=== PATIENT | male | born 1935 | race Caucasian/White ===

== ENCOUNTER → 2016-04-23 | Outpatient (CLI) | payer MEDICARE, MEDICAID ==
[2016-04-23 12:12] LABS: Urine RBC None Seen /hpf (0 - 3)
[2016-04-23 12:23] LABS: Basophils # (auto) 0 uL; Basophils % (auto) 0.6 % (0.0-2.0); Eosinophils # (auto) 0.1 uL; Eosinophils % (auto) 1.5 % (0.0-7.0); Hematocrit 37.9 % (41.0-53.0); Lymphocytes # (auto) 1.6 uL; Mean Corpuscular Hemoglobin 30.5 pg (28.0-32.0); Mean Corpuscular Hgb Conc. 34.2 g/dL (32.0-36.0); Mean Corpuscular Volume 89.3 fL (80.0-100.0); Mean Platelet Volume 8.6 fL (7.4-10.4); Monocytes # (auto) 0.2 uL; Neutrophils # (auto) 2.8 uL; Neutrophils % (auto) 59.9 % (37.0-80.0); Platelet Count (auto) 194 10^3/uL (140-450); Red Cell Distribution Width 13.9 % (11.6-16.0); White Blood Cell 4.6 10^3/uL (4.4-10.8)
[2016-04-23 13:07] LABS: Urine Bilirubin Negative (Negative); Urine Blood Negative /uL (Negative); Urine Color Yellow (Yellow); Urine Glucose Normal (Normal); Urine Ketone Negative (Negative); Urine Nitrite Negative (Negative); Urine Squamous Epithelial Cell FEW /hpf (<5); Urine Urobilinogen Normal (Negative); Urine pH 7.5 (5.0-8.0)
[2016-04-23 13:24] LABS: Albumin 3.6 g/dL (3.4-5.0); BUN/Creatinine Ratio 12.5; Bilirubin, Total 0.6 mg/dL (0.2-1.0); Calcium 8.4 mg/dL (8.5-10.1); Potassium 4.4 mmol/L (3.5-5.1); Total Protein 7.4 g/dL (6.4-8.2)
== END | disposition home or self-care (01) ==
LOC: LAB 11:55
PROVIDERS: ATTEND Internal Medicine
DX: Z00.00 Encounter for general adult medical examination without abnormal findings (principal); E78.2 Mixed hyperlipidemia; E11.9 Type 2 diabetes mellitus without complications; E55.9 Vitamin D deficiency, unspecified; I10 Essential (primary) hypertension
CPT/HCPCS: 36415; 80053; 80061; 81001; 82306; 83036; 84153; 84154; 84443; 85025

== ENCOUNTER → 2016-07-28 | Outpatient (CLI) | payer MEDICARE, MEDICAID | END | disposition home or self-care (01) | LOC: LAB 09:18 | PROVIDERS: ATTEND Internal Medicine | DX: Z00.00 Encounter for general adult medical examination without abnormal findings (principal); E03.9 Hypothyroidism, unspecified | CPT/HCPCS: 36415; 84153; 84154; 84439; 84443; 84481 ==

== ENCOUNTER → 2016-08-11 | Outpatient (CLI) | payer MEDICARE, MEDICAID ==
[2016-08-11 12:19] LABS: BUN/Creatinine Ratio 17.1; Calcium 8.9 mg/dL (8.5-10.1); Potassium 4.4 mmol/L (3.5-5.1)
[2016-08-12 08:06] LABS: Prostate Specific Antigen 6.1 ng/mL (0.0-4.0)
[2016-08-12 13:07] LABS: PSA Free 2.23 ng/mL
== END | disposition home or self-care (01) ==
LOC: LAB 11:40
PROVIDERS: ATTEND Internal Medicine
DX: I10 Essential (primary) hypertension (principal); R97.20 Elevated prostate specific antigen [PSA]
CPT/HCPCS: 36415; 80048; 82270; 84153; 84154

== ENCOUNTER → 2016-09-02 | Outpatient (CLI) | payer MEDICARE, MEDICAID | END | disposition home or self-care (01) | LOC: XYW 08:59 | PROVIDERS: ATTEND Internal Medicine | DX: I10 Essential (primary) hypertension (principal) | CPT/HCPCS: 93306 ==

== ENCOUNTER → 2017-04-14 | Outpatient (CLI) | payer MEDICARE, MEDICAID ==
[2017-04-14 10:49] LABS: Basophils # (auto) 0.1 uL; Eosinophils # (auto) 0.2 uL; Eosinophils % (auto) 3.1 % (0.0-7.0); Hematocrit 36.3 % (41.0-53.0); Hemoglobin 12.5 g/dL (13.5-17.5); Lymphocytes # (auto) 2.1 uL; Lymphocytes % (auto) 34.1 % (10.0-50.0); Mean Corpuscular Hgb Conc. 34.5 g/dL (32.0-36.0); Mean Corpuscular Volume 92.7 fL (80.0-100.0); Monocytes # (auto) 0.2 uL; Monocytes % (auto) 3.8 % (0.0-12.0); Neutrophils # (auto) 3.6 uL; Platelet Count (auto) 198 10^3/uL (140-450); Red Blood Cells 3.91 10^6/uL (4.5-5.90); Red Cell Distribution Width 13.3 % (11.8-14.3); White Blood Cell 6.2 10^3/uL (4.4-10.8)
[2017-04-14 11:25] LABS: Albumin 3.8 g/dL (3.4-5.0); BUN/Creatinine Ratio 17.2; Bilirubin, Total 0.7 mg/dL (0.2-1.0); Calcium 9.2 mg/dL (8.5-10.1); Potassium 4.5 mmol/L (3.5-5.1); Total Protein 7.7 g/dL (6.4-8.2)
== END | disposition home or self-care (01) ==
LOC: LAB 09:53
PROVIDERS: ATTEND Physician Assistant
DX: I10 Essential (primary) hypertension (principal); E55.9 Vitamin D deficiency, unspecified; D64.9 Anemia, unspecified; R01.1 Cardiac murmur, unspecified; R97.20 Elevated prostate specific antigen [PSA]
CPT/HCPCS: 36415; 80053; 80061; 84153; 84154; 85025

== ENCOUNTER → 2017-09-21 | Outpatient (CLI) | payer MEDICARE, MEDICAID | END | disposition home or self-care (01) | LOC: LAB 10:00 | PROVIDERS: ATTEND Physician Assistant | DX: L83 Acanthosis nigricans (principal) ==

== ENCOUNTER → 2018-07-25 | Outpatient (CLI) | payer MEDICARE, MEDICAID ==
[2018-07-25 12:17] LABS: Basophils # (auto) 0.2 uL; Basophils % (auto) 2.5 % (0.0-2.0); Eosinophils # (auto) 0.1 uL; Eosinophils % (auto) 1.7 % (0.0-7.0); Hematocrit 37.2 % (41.0-53.0); Hemoglobin 12.9 g/dL (13.5-17.5); Lymphocytes # (auto) 1.9 uL; Lymphocytes % (auto) 29.8 % (10.0-50.0); Mean Corpuscular Hemoglobin 31.8 pg (28.0-32.0); Mean Corpuscular Hgb Conc. 34.7 g/dL (32.0-36.0); Mean Corpuscular Volume 91.8 fL (80.0-100.0); Monocytes # (auto) 0.3 uL; Monocytes % (auto) 4.2 % (0.0-12.0); Neutrophils # (auto) 3.9 uL; Neutrophils % (auto) 61.8 % (37.0-80.0); Nucleated Red Blood Cells % 0.2 %; Platelet Count (auto) 229 10^3/uL (140-450); Red Blood Cells 4.05 10^6/uL (4.5-5.90); White Blood Cell 6.2 10^3/uL (4.4-10.8)
[2018-07-25 13:24] LABS: Potassium 4.5 mmol/L (3.5-5.1)
[2018-07-25 13:43] LABS: Albumin 3.9 g/dL (3.4-5.0); BUN/Creatinine Ratio 17.2; Bilirubin, Total 0.5 mg/dL (0.2-1.0); Calcium 9.2 mg/dL (8.5-10.1); Total Protein 7.6 g/dL (6.4-8.2)
== END | disposition home or self-care (01) ==
LOC: LAB 11:57
PROVIDERS: ATTEND Physician Assistant
DX: N40.0 Benign prostatic hyperplasia without lower urinary tract symptoms (principal); I10 Essential (primary) hypertension; R97.20 Elevated prostate specific antigen [PSA]; R01.1 Cardiac murmur, unspecified; E55.9 Vitamin D deficiency, unspecified; R94.30 Abnormal result of cardiovascular function study, unspecified
CPT/HCPCS: 36415; 80053; 80061; 84153; 84154; 85025

== ENCOUNTER 2019-08-26 12:02 | Inpatient (IN) | payer MEDICARE, MEDICAID ==
[~2019-08-26] VITALS: Ht 180.3 cm; Wt 95.6 kg
[2019-08-26] MEDS ORDERED: ONDANSETRON HCL 4 MG/2 ML VIAL IV ONE (12:45)
[2019-08-26 13:55] LABS: Basophils # (auto) 0.1 10 ^3/uL (0-0.2); Basophils % (auto) 0.6 % (0.0-2.0); Eosinophils # (auto) 0 10 ^3/uL (0-0.8); Hematocrit 38.1 % (41.0-53.0); Hemoglobin 12.6 g/dL (13.5-17.5); Lymphocytes % (auto) 11.3 % (10.0-50.0); Mean Corpuscular Hemoglobin 30.5 pg (28.0-32.0); Mean Corpuscular Hgb Conc. 33.2 g/dL (32.0-36.0); Mean Corpuscular Volume 91.9 fL (80.0-100.0); Monocytes # (auto) 0.3 10 ^3/uL (0-1.3); Monocytes % (auto) 3.7 % (0.0-12.0); Neutrophils # (auto) 7.8 10 ^3/uL (1.6-8.6); Neutrophils % (auto) 84.4 % (37.0-80.0); Platelet Count (auto) 254 10^3/uL (140-450); Red Blood Cells 4.14 10^6/uL (4.5-5.90); Red Cell Distribution Width 13.6 % (11.8-14.3); White Blood Cell 9.2 10^3/uL (4.4-10.8)
[2019-08-26 14:13] LABS: Anion Gap 8 (5-15); Blood Urea Nitrogen 31 mg/dL (7-18); Calcium 10.7 mg/dL (8.5-10.1); Carbon Dioxide 24 mmol/L (21-32); Chloride 108 mmol/L (98-107); Glucose 134 mg/dL (74-106); Sodium 140 mmol/L (136-145)
[2019-08-26] MEDS ORDERED: MORPHINE SULF INJ 2 MG/ML SYRINGE 1ML IV ONE (14:15)
[2019-08-26 14:19] LABS: Alanine Aminotransferase 18 U/L (16-61); Alkaline Phosphatase 79 U/L (45-117); Aspartate Aminotransferase 14 U/L (15-37); BUN/Creatinine Ratio 16.2; Bilirubin, Total 0.5 mg/dL (0.2-1.0); GFR African American 43 mL/min; GFR Non-African American 36 mL/min; Total Protein 8.6 g/dL (6.4-8.2)
[2019-08-26 14:24] LABS: Magnesium 2.4 mg/dL (1.6-2.6)
[2019-08-26] MEDS ORDERED: LACTATED RINGER'S 1,000 ML IV ONE (15:00)
[2019-08-26] MEDS ORDERED: NITROGLYCERIN 0.4 MG SL TAB SL PRN (15:00)
[2019-08-26] MEDS ORDERED: LACTULOSE 20Gm/30ML SOLN PO PRN (15:00)
[2019-08-26] MEDS ORDERED: ALUM & MAG HYDROX-SIMETH LIQ(MAALOX) 30 ML PO PRN (15:00)
[2019-08-26] MEDS ORDERED: MORPHINE SULF INJ 2 MG/ML SYRINGE 1ML IV PRN (15:00)
[2019-08-26] MEDS ORDERED: LORazepam 0.5 MG TAB PO PRN (15:00)
[2019-08-26] MEDS ORDERED: HYDROcodone-ACET 5/325MG TAB PO PRN (15:00)
[2019-08-26] MEDS ORDERED: DOCUSATE SOD 100 MG CAP PO PRN (15:00)
[2019-08-26] MEDS ORDERED: cloNIDine HCL 0.1 MG TAB PO PRN (16:00)
[2019-08-26 19:20] LABS: INR 1.07 (0.9-1.15); Partial Thromboplastin Time 23.9 sec (23.64-32.05)
[2019-08-26] MEDS: SODIUM CHLORIDE 0.9% 1,000 ML IV SCH (21:16)
[2019-08-26] MEDS: metroNIDAZOLE 500MG/100ML 100 ML IV SCH (21:16)
[2019-08-26] MEDS: METOPROLOL TARTRATE 25 MG TAB PO SCH (21:18)
[2019-08-26 21:30] VITALS: BP_SYST 155; BP_SYST 156; BP_DIAS 74; BP_DIAS 88
--- NOTE | 2019-08-26 21:35 | NUR ---
Patient arrived on unit Patient to room 202, A&Ox4, respirations even and non-labored with no s/s of distress. VS: T 98.6, BP 155/74. HR 96, 94%, RR 18, 0/10 pain. Oriented patient to room, call light, bathroom, bed controls, and placed urinal bedside. Advised patient to call for assistance, bed alarm on. Bed in lowest locked position with 2 side rails up. Call light within reach. Will continue to monitor.
[2019-08-26 22:05] VITALS: BP 150/69
[2019-08-27 05:00] VITALS: BP 145/72
[2019-08-27 06:55] LABS: Basophils # (auto) 0 10 ^3/uL (0-0.2); Basophils % (auto) 0.6 % (0.0-2.0); Eosinophils # (auto) 0 10 ^3/uL (0-0.8); Eosinophils % (auto) 0.1 % (0.0-7.0); Hematocrit 33.4 % (41.0-53.0); Hemoglobin 11.4 g/dL (13.5-17.5); Lymphocytes # (auto) 1.3 10 ^3/uL (0.4-5.4); Lymphocytes % (auto) 18.3 % (10.0-50.0); Mean Corpuscular Hemoglobin 31.1 pg (28.0-32.0); Mean Corpuscular Volume 91.6 fL (80.0-100.0); Monocytes # (auto) 0.5 10 ^3/uL (0-1.3); Monocytes % (auto) 6.9 % (0.0-12.0); Neutrophils # (auto) 5.2 10 ^3/uL (1.6-8.6); Neutrophils % (auto) 74.1 % (37.0-80.0); Platelet Count (auto) 207 10^3/uL (140-450); Red Blood Cells 3.65 10^6/uL (4.5-5.90); Red Cell Distribution Width 13.5 % (11.8-14.3)
[2019-08-27] MEDS: metroNIDAZOLE 500MG/100ML 100 ML IV SCH ×3 (07:00→21:00)
[2019-08-27 07:15] LABS: Potassium 4.1 mmol/L (3.5-5.1)
[2019-08-27 07:21] LABS: INR 1.03 (0.9-1.15); Partial Thromboplastin Time 26.3 sec (23.64-32.05)
[2019-08-27 07:34] LABS: Albumin 3.3 g/dL (3.4-5.0); Bilirubin, Total 0.5 mg/dL (0.2-1.0); Calcium 9.1 mg/dL (8.5-10.1); Magnesium 2.2 mg/dL (1.6-2.6); Phosphorus 3.6 mg/dL (2.5-4.90); Total Protein 7.1 g/dL (6.4-8.2)
--- NOTE | 2019-08-27 07:38 | NUR ---
Closing shift note Patient awake, sitting up watching TV without s/s of distress or SOB. Endorsed care to day RNYudelka.
[2019-08-27] MEDS: SODIUM CHLORIDE 0.9% 1,000 ML IV SCH (08:09)
[2019-08-27 09:00] VITALS: BP 140/74
[2019-08-27] MEDS: cefTRIAXone 1GM/50ML D5W 50 ML IV SCH (09:11)
[2019-08-27] MEDS: ENOXAPARIN SOD 40 MG/0.4 ML SYRINGE SC SCH (10:00)
[2019-08-27] MEDS: METOPROLOL TARTRATE 25 MG TAB PO SCH ×2 (10:00→21:01)
[2019-08-27] MEDS ORDERED: THROAT LOZENGES(CEPASTAT) MT PRN (12:45)
[2019-08-27 13:00] VITALS: BP 140/69
--- NOTE | 2019-08-27 16:29 | NUR ---
Consents - Colonoscopy/PICC Colonoscopy consents signed. Surgical checklist done. PICC order signed. PICC consent not signed by doctor as he believed signing the consent meant he did the procedure. He said it was for the PICC line nurse to sign. Explained that signing the consent meant that he had explained the procedure/risks/etc to the patient, not that he did the procedure. He disagreed. Will pass along to shift production supervisor that this consent still needs to be signed by the doctor.
[2019-08-27 16:54] LABS: Urine Bacteria NONE SEEN /hpf (None Seen); Urine Blood Negative /uL (Negative); Urine Mucus FEW (None Seen); Urine Specific Gravity 1.021 (1.001-1.035); Urine WBC 2 /hpf (0 - 3)
[2019-08-27 17:00] VITALS: BP 135/48
[2019-08-27 17:01] LABS: Amphetamine Screen, Urine NEGATIVE (NEGATIVE); Barbiturate Scree,Urine NEGATIVE (NEGATIVE); Benzodiazephine Screen, Urine NEGATIVE (NEGATIVE); Cannabinoid Screen, Urine NEGATIVE (NEGATIVE); Cocaine Screen, Urine NEGATIVE (NEGATIVE); Opiate Scree,Urine NEGATIVE (NEGATIVE); Phencyclidine Screen, Urine NEGATIVE (NEGATIVE)
--- NOTE | 2019-08-27 19:15 | NUR ---
Opening shift note Assumed care of patient who is A&Ox4, respirations even and non-labored with no s/s of distress. Discussed POC with patient who verbalized understanding. NGT at low intermittent suction, 30 mL of light brown gastric fluid in canister. Bed in lowest locked position with 2 side rails up, call light within reach. Will continue to monitor.
[2019-08-27] MEDS: ONDANSETRON HCL 4 MG/2 ML VIAL IV PRN (21:00)
[2019-08-27] MEDS: MORPHINE SULF INJ 2 MG/ML SYRINGE 1ML IV PRN (21:01)
--- NOTE | 2019-08-27 21:05 | NUR ---
IV removal IV DC'd with clean sterile technique, catheter fully intact. Pressure dressing applied to site. Patient tolerated well.
--- NOTE | 2019-08-27 21:10 | NUR ---
Pain Patient c/o 7/10 pain to the throat and abdomen. Administered 2 mg Morphine and 4 mg Zofran per EMAR. Will continue to monitor.
--- NOTE | 2019-08-27 21:15 | NUR ---
IV insertion IV access obtained, via clean sterile technique by inserting 20 gauge catheter at the right FA after 1 attempt. IV secured properly. No trauma to site. Patient tolerated well.
--- NOTE | 2019-08-27 21:20 | NUR ---
Pain Reassessed Patient stated that his pain level is about a 2/10 now and that he feels much better. Will continue to monitor.
[2019-08-28 00:08] VITALS: BP 119/73
[2019-08-28] MEDS: SODIUM CHLORIDE 0.9% 1,000 ML IV SCH ×2 (00:17→17:42)
[2019-08-28 05:34] LABS: Basophils # (auto) 0 10 ^3/uL (0-0.2); Basophils % (auto) 0.7 % (0.0-2.0); Eosinophils # (auto) 0 10 ^3/uL (0-0.8); Eosinophils % (auto) 0.3 % (0.0-7.0); Hematocrit 31.9 % (41.0-53.0); Hemoglobin 10.8 g/dL (13.5-17.5); Lymphocytes # (auto) 1.3 10 ^3/uL (0.4-5.4); Mean Corpuscular Hemoglobin 31.1 pg (28.0-32.0); Mean Corpuscular Hgb Conc. 33.9 g/dL (32.0-36.0); Mean Corpuscular Volume 91.9 fL (80.0-100.0); Monocytes # (auto) 0.6 10 ^3/uL (0-1.3); Neutrophils # (auto) 5.1 10 ^3/uL (1.6-8.6); Platelet Count (auto) 177 10^3/uL (140-450); Red Blood Cells 3.47 10^6/uL (4.5-5.90); Red Cell Distribution Width 13.8 % (11.8-14.3)
[2019-08-28 05:41] VITALS: BP 131/68
[2019-08-28 05:50] LABS: INR 1.07 (0.9-1.15)
[2019-08-28 05:59] LABS: Potassium 4.3 mmol/L (3.5-5.1)
[2019-08-28 06:04] LABS: Calcium 8.3 mg/dL (8.5-10.1)
--- NOTE | 2019-08-28 07:30 | NUR ---
Closing shift note Patient resting without SOB or s/s of distress. Endorsed care to day RN Summer.
--- NOTE | 2019-08-28 07:40 | NUR ---
Opening Note Received report from shift production associate RN. Patient is awake, alert and oriented x4. Patient is on room air, respirations even and unlabored. Patient has NG tube to right nares, set to low intermittent suction. Patient denies pain at this time. Reviewed plan of care with patient, patient verbalized understanding. Patient is NPO for scheduled procedure. Bed in low and locked position, call light within reach. Will continue to monitor Q1 hour and PRN.
--- NOTE | 2019-08-28 08:05 | NUR ---
Patient refused stress test Patient states "I don't need that, my heart is fine." Patient educated on importance of test, continues to refuse. Tech at bedside. Will continue to monitor Q1 hour and PRN.
--- NOTE | 2019-08-28 08:10 | NUR ---
Enema administered Per MD orders. Call light within reach. Will continue to monitor.
[2019-08-28] MEDS ORDERED: ADENOSINE 82 MG in GIVE UN-DILUTED 0 ML IV STA (08:33)
[2019-08-28 09:00] VITALS: BP 127/65
[2019-08-28] MEDS: cefTRIAXone 1GM/50ML D5W 50 ML IV SCH (09:19)
[2019-08-28] MEDS: ENOXAPARIN SOD 40 MG/0.4 ML SYRINGE SC SCH (10:00)
[2019-08-28] MEDS: METOPROLOL TARTRATE 25 MG TAB PO SCH ×2 (10:00→22:40)
--- NOTE | 2019-08-28 11:35 | NUR ---
Patient removed NG Tube This RN found patient NG tube on the floor. Patient states "I sneezed and it came out." Site assessed, no trauma noted. Will continue to monitor Q1 hour and PRN.
--- NOTE | 2019-08-28 11:40 | NUR ---
Patient taken down to OR
[2019-08-28] MEDS ORDERED: diphenhdrAMINE HCL 50 MG/1 ML VL ONE (12:30)
[2019-08-28] MEDS ORDERED: SODIUM CHLORIDE LOCK 10 ML ONE (12:30)
[2019-08-28 13:00] VITALS: BP 127/49
[2019-08-28] MEDS: MIDAZOLAM HCL 5 MG/ML-1ML VIAL ONE ×4 (15:02→15:15)
[2019-08-28] MEDS: fentaNYL CITRATE 100 MCG/2 ML VL ONE ×3 (15:02→15:11)
--- NOTE | 2019-08-28 16:01 | NUR ---
Patient back to room Patient is s/p colonoscopy. Patient is awake and alert. Patient is having periods of confusion. Patient denies pain at this time. Vital signs within normal limits. Patient is to remain NPO. Bed alarm on for safety. Bed in low and locked position, call light within reach. Patient instructed to call for assistance. Will continue to monitor Q1 hour and PRN.
[2019-08-28 17:00] VITALS: BP 144/64
[2019-08-28] MEDS: metroNIDAZOLE 500MG/100ML 100 ML IV SCH ×3 (17:41→22:39)
--- NOTE | 2019-08-28 19:06 | NUR ---
Closing Note Report given to material handler 1st shift RN. No signs or symptoms of distress noted at this time.
--- NOTE | 2019-08-28 19:15 | NUR ---
Opening shift note Assumed care of patient who is A&Ox4, respirations even and non-labored with no s/s of distress. Discussed POC with patient who verbalized understanding. Advised patient to call for assistance, bed alarm on. Bed in lowest locked position with 2 side rails up. Call light within reach, will continue to monitor
[2019-08-28 22:00] VITALS: BP 134/69
[2019-08-28] MEDS: MORPHINE SULF INJ 2 MG/ML SYRINGE 1ML IV PRN (22:40)
--- NOTE | 2019-08-28 22:40 | NUR ---
Pain reassessed Patient sleeping, respirations even and non-labored with no s/s of distress. Will continue to monitor.
--- NOTE | 2019-08-28 22:40 | NUR ---
Pain Patient c/o 8/10 abdominal/body pain. Administered 2 mg Morphine per EMAR, will continue to monitor.
[2019-08-29] VITALS (7 sets, daily range): BP systolic 121–145; BP diastolic 68–86
[2019-08-29 05:19] LABS: Basophils # (auto) 0.1 10 ^3/uL (0-0.2); Eosinophils # (auto) 0.1 10 ^3/uL (0-0.8); Eosinophils % (auto) 1.5 % (0.0-7.0); Hematocrit 30.2 % (41.0-53.0); Hemoglobin 10.4 g/dL (13.5-17.5); Lymphocytes # (auto) 1.5 10 ^3/uL (0.4-5.4); Lymphocytes % (auto) 25.3 % (10.0-50.0); Mean Corpuscular Hemoglobin 31.5 pg (28.0-32.0); Mean Corpuscular Hgb Conc. 34.3 g/dL (32.0-36.0); Mean Corpuscular Volume 91.8 fL (80.0-100.0); Monocytes # (auto) 0.4 10 ^3/uL (0-1.3); Monocytes % (auto) 6.8 % (0.0-12.0); Neutrophils # (auto) 3.8 10 ^3/uL (1.6-8.6); Neutrophils % (auto) 65.4 % (37.0-80.0); Platelet Count (auto) 149 10^3/uL (140-450); Red Blood Cells 3.29 10^6/uL (4.5-5.90); Red Cell Distribution Width 13.8 % (11.8-14.3); White Blood Cell 5.8 10^3/uL (4.4-10.8)
[2019-08-29 05:50] LABS: Calcium 7.9 mg/dL (8.5-10.1); Potassium 4.1 mmol/L (3.5-5.1)
[2019-08-29] MEDS: metroNIDAZOLE 500MG/100ML 100 ML IV SCH ×3 (06:35→21:41)
--- NOTE | 2019-08-29 07:36 | NUR ---
Closing shift note Patient resting with no s/s of distress or SOB. Endorsed care to day RNCeline.
--- NOTE | 2019-08-29 08:00 | NUR ---
Opening Shift Note Assumed care of patient, awake, alert and oriented X4. No S/S of distress/SOB or pain. Tele# 28, sinus rhythm @ 74 bpm. IV to right forearm, 20 gauge, patent and infusing 0.9% NS @ 60 ml/hr. Patient remains NPO. Instructed on POC and to call for assist PRN, verbalized understanding. Bed locked, in lowest position, call light within reach, will continue to monitor for changes Q1hr and PRN.
[2019-08-29] MEDS: cefTRIAXone 1GM/50ML D5W 50 ML IV SCH (09:55)
[2019-08-29] MEDS: METOPROLOL TARTRATE 25 MG TAB PO SCH ×2 (09:56→21:41)
[2019-08-29] MEDS: ENOXAPARIN SOD 40 MG/0.4 ML SYRINGE SC SCH ×2 (09:56→10:00)
--- NOTE | 2019-08-29 11:00 | NUR ---
Est energy needs 2931-9212 kcal (14-18 kcal/kg BW 100.7kg) Est protein 60-76g (0.6-0.75g/kg BW 100.7kg r/t elevated RFTs, inc protein if RFT improve) WIll reassess prn. Addendum: 08/29/19 at [address] Amended: Links added.
[2019-08-29] MEDS ORDERED: ADENOSINE 85 MG in GIVE UN-DILUTED 0 ML IV STA (11:37)
[2019-08-29] MEDS: LIDOCAINE VISCOUS 2% 15ML UD PO SCH ×3 (12:00→21:41)
[2019-08-29] MEDS: SODIUM CHLORIDE 0.9% 1,000 ML IV SCH (14:34)
--- NOTE | 2019-08-29 19:20 | NUR ---
Care endorsed to BRAD Graff, night nurse.
--- NOTE | 2019-08-29 20:00 | NUR ---
Opening Shift Note Assumed care of patient, awake and alert. No S/S of distress/SOB or pain. Instructed on POC and to call for assist PRN, will continue to monitor for changes Q1hr and PRN.
[2019-08-30] MEDS: SODIUM CHLORIDE 0.9% 1,000 ML IV SCH ×2 (02:17→18:57)
[2019-08-30 05:00] VITALS: BP 160/79
[2019-08-30 05:48] LABS: Basophils # (auto) 0.1 10 ^3/uL (0-0.2); Basophils % (auto) 1.4 % (0.0-2.0); Eosinophils # (auto) 0.1 10 ^3/uL (0-0.8); Eosinophils % (auto) 2.6 % (0.0-7.0); Hematocrit 29.8 % (41.0-53.0); Hemoglobin 10.1 g/dL (13.5-17.5); Lymphocytes # (auto) 1.2 10 ^3/uL (0.4-5.4); Lymphocytes % (auto) 24.8 % (10.0-50.0); Mean Corpuscular Hemoglobin 31.5 pg (28.0-32.0); Mean Corpuscular Volume 92.7 fL (80.0-100.0); Monocytes # (auto) 0.3 10 ^3/uL (0-1.3); Monocytes % (auto) 6.6 % (0.0-12.0); Neutrophils # (auto) 3.1 10 ^3/uL (1.6-8.6); Neutrophils % (auto) 64.6 % (37.0-80.0); Nucleated Red Blood Cells % 0.1 %; Platelet Count (auto) 158 10^3/uL (140-450); Red Blood Cells 3.22 10^6/uL (4.5-5.90); Red Cell Distribution Width 13.6 % (11.8-14.3); White Blood Cell 4.8 10^3/uL (4.4-10.8)
[2019-08-30] MEDS: LIDOCAINE VISCOUS 2% 15ML UD PO SCH ×4 (06:00→22:00)
[2019-08-30 06:06] LABS: Potassium 3.9 mmol/L (3.5-5.1)
[2019-08-30 06:08] LABS: BUN/Creatinine Ratio 17.5
[2019-08-30] MEDS: metroNIDAZOLE 500MG/100ML 100 ML IV SCH ×3 (06:17→21:32)
[2019-08-30 06:21] VITALS: BP 154/90
--- NOTE | 2019-08-30 06:46 | NUR ---
IV removal IV DC'd with clean sterile technique, catheter fully intact. Pressure dressing applied to site. Patient tolerated well. IV insertion IV access obtained, via clean sterile technique by inserting 22 gauge catheter at RIGHT FOREARM after 1 attempt(s). IV secured properly. No trauma to site. Patient tolerated well.
--- NOTE | 2019-08-30 07:15 | NUR ---
OPENING NOTE Assumed care of patient at 0700. Lung sounds clear, equal bilaterally and unlabored. Patient verbalized that he is not feeling any pain at this time. Assisted patient with ADLs. Updated patient on POC. Bed locked in lowest position, HOB elevated at least 30 degrees, side rails up x 2 and call light is within reach. Will continue to monitor.
[2019-08-30 08:17] VITALS: BP 149/87
[2019-08-30] MEDS: METOPROLOL TARTRATE 25 MG TAB PO SCH ×2 (09:23→21:29)
[2019-08-30] MEDS: cefTRIAXone 1GM/50ML D5W 50 ML IV SCH (09:23)
[2019-08-30] MEDS: ENOXAPARIN SOD 40 MG/0.4 ML SYRINGE SC SCH (09:24)
--- NOTE | 2019-08-30 10:30 | NUR ---
GI Dr Matthews at bedside for GI follow up. No new orders received at this time. Plan of care discussed with patient, verbalized understanding.
--- NOTE | 2019-08-30 11:30 | NUR ---
SURGICAL Dr Hernandez at bedside for rounds, new orders received and followed through. Patient updated on plan of care, verbalized understanding.
[2019-08-30 11:57] VITALS: BP 149/77
--- NOTE | 2019-08-30 12:30 | NUR ---
ROUNDS Dr Siddhartha Josue at bedside for rounds, new orders received and followed through. Patient updated on plan of care, verbalized understanding.
--- NOTE | 2019-08-30 12:50 | NUR ---
CARDIOLOGY Dr Decker at bedside for Cardiology follow up. No new orders received at this time. Plan of care discussed with patient, verbalized understanding.
[2019-08-30 16:41] VITALS: BP 145/78
--- NOTE | 2019-08-30 17:32 | NUR ---
assessment Patient is a 83 year old male who is alert and oriented. Patients cognitive abilities are intact. Prior to admission patient lived home alone and functioned independently. Patient informed me he is able to care for his own ADLs. Per patient he will return home to his prior living arrangements post discharge and will have transport home. Patient is scheduled for a hemicolectomy in the morning. Patient does not want to go to SNF on discharge. I informed patient we would discharge plan after surgery to see if he can go home with home health. Patient agreed. I will continue to monitor and follow up as appropriate. I informed patient he has a right to speak to a social services director regarding all care. I informed patient he has a right to participate in any and all discharge planning. Patient has a POA and advanced directive. I have offered patient information on POA and advanced directives. I informed the patient the advantages and benefits of having an Advanced Directive. Patient verbalized understanding and agreed to discharge plan. Addendum: 08/30/19 at 1739 by Humaira PICKERING Amended: Links added.
--- NOTE | 2019-08-30 19:12 | NUR ---
Care endorsed to BRAD Graff, night nurse.
[2019-08-30 23:12] VITALS: BP 150/85
[2019-08-31 05:00] VITALS: BP 129/73
[2019-08-31] MEDS: LIDOCAINE VISCOUS 2% 15ML UD PO SCH ×4 (05:48→22:00)
[2019-08-31] MEDS: metroNIDAZOLE 500MG/100ML 100 ML IV SCH ×3 (05:52→22:03)
[2019-08-31 06:32] LABS: INR 1.12 (0.9-1.15)
[2019-08-31] MEDS ORDERED: DOXAPRAM HCL 20 MG/ML 20ML VIAL INJ IV ONE (07:06)
[2019-08-31] MEDS ORDERED: LIDOCAINE 1% HCL (LOCAL ANESTH.) INJ 20ML MDV ONE (07:06)
[2019-08-31] MEDS ORDERED: SUCCINYLCHOLINE CHLORIDE 20 MG/ML 10ML VIAL IV ONE (07:06)
[2019-08-31] MEDS ORDERED: fentaNYL CITRATE 100 MCG/2 ML VL ONE (07:12)
[2019-08-31] MEDS ORDERED: ROCURONIUM 10MG/ML 10ML VIAL IV ONE (07:12)
[2019-08-31] MEDS ORDERED: fentaNYL CITRATE 5 ML ONE (07:12)
[2019-08-31] MEDS ORDERED: MORPHINE SULFATE INJECTION 1 ML ONE (07:13)
[2019-08-31] MEDS ORDERED: SODIUM CHLORIDE LOCK 10 ML ONE (07:13)
[2019-08-31] MEDS ORDERED: MIDAZOLAM HCL 1MG/1ML-2 ML VIAL ONE (07:13)
[2019-08-31] MEDS ORDERED: ETOMIDATE (2MG/ML) 20ML VIAL IV ONE (07:13)
[2019-08-31] MEDS ORDERED: PROPOFOL 10 MG/ML 20 ML IV ONE (07:13)
[2019-08-31] MEDS ORDERED: ONDANSETRON HCL 4 MG/2 ML VIAL ONE (07:13)
--- NOTE | 2019-08-31 07:30 | NUR ---
Report received. Patient is off unit at this time.
[2019-08-31] MEDS ORDERED: ceFAZolin 1GM/50ML 50 ML IV ONE (07:32)
--- NOTE | 2019-08-31 08:56 | NUR ---
Received call from PACU. Procedure was not able to be done due to patient experiencing A-fib/A-flutter. Patient to return to room and Dr. Decker to be consulted.
--- NOTE | 2019-08-31 09:15 | NUR ---
Dr. Siddhartha Josue informed the surgery was not done due to dysrhythmias.
[2019-08-31 09:30] VITALS: BP 122/67
[2019-08-31] MEDS: METOPROLOL TARTRATE 25 MG TAB PO SCH ×2 (10:00→22:00)
[2019-08-31] MEDS: cefTRIAXone 1GM/50ML D5W 50 ML IV SCH (10:16)
--- NOTE | 2019-08-31 10:54 | NUR ---
Nutrition Floowup Notes Pt wt is 100.0 kg Pt was sleeping with no relatives at bedside when rounded this morning. Pt is currently NPO d/t scheduled medical procedure. Pt with no distress per RD doc. Will continue to monitor PO status, skin status, pertinent labs and weight trends. Will f/u in 2-3 days. Est energy needs 1390-5927 kcal (14-18 kcal/kg BW 100.7kg) Est protein 60-76g (0.6-0.75g/kg BW 100.7kg r/t elevated RFTs, inc protein if RFT improve) Will reassess prn. LABS: POT 116 H, BUN 25 H, CR 1.43 H, GFR 50 L, CA 8.0 L, ALB 3.3 L GI: Pt had 4 BM on 08/27 per RN doc. BS: 18 mod risk Refer to wound assessment report for full details. PES: 1) Obesity r/t caloric intake in excess of needs aeb pt BMI is 31.0kg/m2 which is obese 2) Altered nutrition related labs r/t current medical condition aeb elevated RFTs, hypoalb 3) Inadequate oral intake r/t current medical condition aeb pt with NPO diet order Comments 1) continue monitor po status, labs, skin 2) refer pt to [facility] on dc 3) continue current plan of care
[2019-08-31] MEDS: SODIUM CHLORIDE 0.9% 1,000 ML IV SCH (11:37)
[2019-08-31 13:00] VITALS: BP 137/74
[2019-08-31] MEDS ORDERED: LIDOCAINE 1% (LOCAL ANESTH.) PF 5ml SDV ID ONE (15:00)
--- NOTE | 2019-08-31 15:00 | NUR ---
PICC line placement Patient educated on need for PICC line placement. All risks and benefits explained and all questions and concerns addressed prior to procedure. Pt agrees to PICC line placement. Noted past medical history and allergies with no contraindications. INR and Plt counts within acceptable range. 5 fr PICC line inserted via right brachial vein using [employer]'s [employer] US and Tip Location System. Sterile technique with maximum barrier precautions utilized. Blood return obtained from each of the 2 lumens and each flushed easily with NS using proper technique. PICC secured with Stat-lock; biodisc and occlusive dressing applied. Stat portable chest x-ray obtained for PICC tip placement. *Baseline Arm Circumference 30 cm. Internal length 51 cm. External length 0. PICC lot #[id number]
--- NOTE | 2019-08-31 15:05 | NUR ---
Okay to use PICC line Xray completed and reviewed. Okay to use PICC line. Sherri SALINAS notified.
[2019-08-31 17:00] VITALS: BP 134/78
--- NOTE | 2019-08-31 18:25 | NUR ---
Patient has no complaints at this time. Call light in reach. Will continue to monitor.
[2019-08-31 22:00] VITALS: BP 135/75
[2019-08-31] MEDS: SODIUM CHLOR 0.9% PF (SALINE LOCK) 10ML VIAL/SYR IV SCH (22:03)
[2019-09-01] VITALS (18 sets, daily range): BP systolic 111–170; BP diastolic 31–97
[2019-09-01] MEDS: MORPHINE SULF INJ 2 MG/ML SYRINGE 1ML IV PRN ×2 (02:56→10:11)
[2019-09-01] MEDS: SODIUM CHLORIDE 0.9% 1,000 ML IV SCH ×2 (04:45→21:29)
[2019-09-01] MEDS: METOPROLOL TARTRATE 1MG/1ML-5ML VIAL IV PRN (05:13)
[2019-09-01] MEDS: LIDOCAINE VISCOUS 2% 15ML UD PO SCH ×4 (05:43→21:38)
[2019-09-01] MEDS: metroNIDAZOLE 500MG/100ML 100 ML IV SCH ×3 (05:43→21:30)
--- NOTE | 2019-09-01 07:30 | NUR ---
Opening shift note Assumed care of patient from NOC BRAD mo. Patient is AOX4 no s/s of distress noted. Bed in lowest locked position, side rails up x2 and call light is within reach. Updated patient on plan of care and patient verbalized understanding. Will continue to monitor q1hr and PRN.
--- NOTE | 2019-09-01 07:37 | NUR ---
Closing note Endorsed care to day shift RN.
--- NOTE | 2019-09-01 08:30 | NUR ---
Physician rounding. Dr. Josue at bedside, updated MD on patient status. New orders received, will follow thorough and will continue care.
--- NOTE | 2019-09-01 08:30 | NUR ---
Physician rounding Dr. Josue at bedside, updated MD on patient status. New orders received, will follow through and will continue care.
--- NOTE | 2019-09-01 09:42 | NUR ---
Received call from Received call from Dr. Hernandez, per MD he would like Dr. Corado to reassess the patient. Will place call to ground crewman Mickie.
--- NOTE | 2019-09-01 09:50 | NUR ---
Paged continuum of care manager Placed page for Dr. Corado regarding surgery. Abating call back.
[2019-09-01] MEDS: cefTRIAXone 1GM/50ML D5W 50 ML IV SCH (10:11)
[2019-09-01] MEDS: SODIUM CHLOR 0.9% PF (SALINE LOCK) 10ML VIAL/SYR IV SCH ×2 (10:11→21:38)
[2019-09-01] MEDS: METOPROLOL TARTRATE 25 MG TAB PO SCH ×2 (10:12→21:38)
--- NOTE | 2019-09-01 10:15 | NUR ---
Received call back from Received call back from Dr. Corado. Per MD patient is clear for surgery, stated if Dr. Hernandez has any further questions to contact him or consult another milk tanker driver. Will update Dr. Hernandez, will continue care.
--- NOTE | 2019-09-01 10:21 | NUR ---
Returned call to MD Called Dr. Hernandez Regarding update from Dr. Decker. No new orders received at this time, will continue care.
--- NOTE | 2019-09-01 12:30 | NUR ---
CORE BLOWER OPERATORBRAD Corral at bedside. BRAD Corral Provided update regarding patients status. Per anesthesiologist patient will be monitored in pre-op.
--- NOTE | 2019-09-01 12:38 | NUR ---
Patient off unit Patient taken down by OR nurse Shayna. No s/s of distress noted at this time.
[2019-09-01] MEDS ORDERED: METOPROLOL TARTRATE 1MG/1ML-5ML VIAL IV ONE ×3 (12:59→15:15)
[2019-09-01] MEDS ORDERED: fentaNYL CITRATE 100 MCG/2 ML VL ONE (13:46)
[2019-09-01] MEDS ORDERED: MIDAZOLAM HCL 1MG/1ML-2 ML VIAL ONE ×2 (13:46→15:56)
[2019-09-01] MEDS ORDERED: HYDROmorphone HCL 2 MG/ML VL ONE ×2 (13:46→15:56)
[2019-09-01] MEDS ORDERED: fentaNYL CITRATE 10 ML ONE (13:47)
[2019-09-01] MEDS ORDERED: ETOMIDATE (2MG/ML) 20ML VIAL IV ONE (14:09)
[2019-09-01] MEDS ORDERED: ROCURONIUM 10MG/ML 10ML VIAL IV ONE ×2 (14:10→15:56)
[2019-09-01] MEDS ORDERED: ESMOLOL HCL 10 ML IV ONE (15:15)
[2019-09-01] MEDS ORDERED: POVIDONE IODINE 10 % TOPICAL OINT 30GM TOP ONE (15:48)
[2019-09-01] MEDS: MIDAZOLAM DRIP 50 mg/50mL 50 ML IV SCH (15:59)
[2019-09-01] MEDS: fentaNYL Drip 2500mCg/250mlNS 250 ML IV SCH (15:59)
[2019-09-01] MEDS ORDERED: MIDAZOLAM DRIP 50 mg/50mL 50 ML IV ONE (16:07)
[2019-09-01] MEDS ORDERED: HYDROmorphone HCL 2 MG/ML VL IV PRN ×2 (16:45)
[2019-09-01] MEDS ORDERED: MIDAZOLAM HCL 1MG/1ML-2 ML VIAL IV PRN (16:45)
[2019-09-01] MEDS ORDERED: ONDANSETRON HCL 4 MG/2 ML VIAL IV PRN (16:45)
[2019-09-01] MEDS ORDERED: MORPHINE SULFATE 4 MG/ML SYR/VIAL IV PRN (16:45)
[2019-09-01] MEDS ORDERED: TPN PER PHARMACY 0 ML IV SCH (17:45)
[2019-09-01] MEDS ORDERED: AMINO ACID INFUSION IN D5W 2,000 ML IV NR (20:00)
--- NOTE | 2019-09-01 20:30 | NUR ---
RECEIVED PATIENT FROM PACU: INTUBATED AND SEDATED. DEEPLY SEDATED, GROSSLY UNRESPONSIVE. AFIB 100-130s. A LINE PRESSURES 160-180s. NIBP SIMILAR. PER PACU, ANESTHESIOLOGIST AWARE, AND NEAR PATIENT'S BASELINE SO NO INTERVENTION WAS DONE. 8.0 ETT, 23 AT THE LIP. LS CTA, DIMINISHED TO BASES. EVEN AND UNLABORED BREATHING. MINIMAL ETT AND ORAL SECRETIONS. SpO2> 95% ON CURRENT VENT SETTINGS. ABD SOFT. HYPOACTIVE BS. NGT TO LCS, + AIR BOLUS. BRADY X1 TO LEFT ABDOMEN, PALE BLOODY OUTPUT. MLI WITH ORIGINAL SURGICAL DRESSING, CDI, WITH NO BREAKTHROUGH. ABDOMINAL BINDER IN PLACE. MCCABE PATENT AND INTACT, DRAINING CONSTANTINO URINE. RIGHT UPPER ARM PICC, CDI, AND PATENT WITH BLOOD RETURN. LEFT HAND 20 G PIV AND RIGHT FOREARM 22 G PIV, CDI, BUT WITHOUT BLOOD RETURN. LEFT RADIAL JUAN DAVID, PATENT AND CDI. NOTED WITH SCATTERED SCABS THROUGH OUT SKIN. LIPS DRY AND CRACKED, MUCOUS MEMBRANE VERY DRY. REINFORCED POC. MAINTAINED PATIENT SAFETY: BED LOCKED AND IN THE LOWEST POSITION, FREQUENT VISUAL CHECK.
--- NOTE | 2019-09-01 21:08 | NUR ---
SPOKE WITH DR. HOOKER: MADE AWARE OF ELEVATED BP. ORDERS FOR HYDRALAZINE 10 MG Q6HPRN SBP > 150. MADE AWARE OF ABG RESULTS. PER DR. HOOKER, UNLESS ABG WAS RECENT THE RESULTS ARE NOT ACCURATE AND LONG PATIENT IS NOT IN DISTRESS THERE IS NO NEED TO REPEAT THE ABG AT THIS TIME. ORDERS READBACK AND VERIFIED
[2019-09-01] MEDS: hydrALAZINE HCL 20 MG/ML VL IV PRN (21:31)
--- NOTE | 2019-09-01 22:58 | NUR ---
20 G PIV STARTED TO LEFT FOREARM
--- NOTE | 2019-09-01 22:59 | NUR ---
REMOVED PIV TO LEFT HAND AND RIGHT FOREARM: TIP INTACT. HEMOSTASIS ACHIEVED
[2019-09-01] MEDS: InsuLIN REG 1unit/0.01ml Soln (100units/ml) SC SCH (23:36)
[2019-09-01] MEDS: ACCU-CHEK COMFORT CURVE STRIP VI SCH (23:37)
[2019-09-02] VITALS (105 sets, daily range): BP systolic 98–206; BP diastolic 34–93
[2019-09-02] MEDS ORDERED: DEXTROSE (50%) 50ML SYRG IV SCH
[2019-09-02] MEDS: MIDAZOLAM DRIP 50 mg/50mL 50 ML IV SCH ×4 (02:07→18:55)
[2019-09-02 04:41] LABS: Basophils # (auto) 0 10 ^3/uL (0-0.2); Basophils % (auto) 0.4 % (0.0-2.0); Eosinophils # (auto) 0 10 ^3/uL (0-0.8); Hematocrit 28.1 % (41.0-53.0); Hemoglobin 9.6 g/dL (13.5-17.5); Lymphocytes # (auto) 0.9 10 ^3/uL (0.4-5.4); Lymphocytes % (auto) 11.1 % (10.0-50.0); Mean Corpuscular Hemoglobin 31.7 pg (28.0-32.0); Mean Corpuscular Volume 93.1 fL (80.0-100.0); Monocytes # (auto) 0.5 10 ^3/uL (0-1.3); Monocytes % (auto) 5.9 % (0.0-12.0); Neutrophils # (auto) 6.4 10 ^3/uL (1.6-8.6); Neutrophils % (auto) 82.6 % (37.0-80.0); Platelet Count (auto) 142 10^3/uL (140-450); Red Blood Cells 3.02 10^6/uL (4.5-5.90); White Blood Cell 7.7 10^3/uL (4.4-10.8)
--- NOTE | 2019-09-02 04:41 | NUR ---
BED BATH WITH CHG WIPES, TRACIE CARE, MCCABE CARE, ORAL CARE, AND FULL LINEN CHANGE COMPLETED
[2019-09-02 04:59] LABS: Albumin 2.4 g/dL (3.4-5.0); Calcium 7.4 mg/dL (8.5-10.1); Magnesium 1.6 mg/dL (1.6-2.6); Potassium 3.9 mmol/L (3.5-5.1)
[2019-09-02 05:05] LABS: BUN/Creatinine Ratio 12.3; Bilirubin, Total 0.5 mg/dL (0.2-1.0); Phosphorus 2.2 mg/dL (2.5-4.90); Pre Albumin 8.8 mg/dL (20.0-40.0); Total Protein 5.4 g/dL (6.4-8.2)
[2019-09-02] MEDS: LIDOCAINE VISCOUS 2% 15ML UD PO SCH ×4 (05:52→21:47)
[2019-09-02] MEDS: ACCU-CHEK COMFORT CURVE STRIP VI SCH ×4 (05:52→23:33)
[2019-09-02] MEDS: metroNIDAZOLE 500MG/100ML 100 ML IV SCH ×3 (05:52→21:58)
[2019-09-02] MEDS: InsuLIN REG 1unit/0.01ml Soln (100units/ml) SC SCH ×4 (05:52→23:34)
--- NOTE | 2019-09-02 08:00 | NUR ---
DR. Adrian PRETTY ROUNDING ON PT NOTIFIED HIM OF PT'S CONDITION, TACHYCARDIA, AFIB HR IN THE 120'S TEMP 100.7. ORDERED BLOOD CULTURES AND RECOMMENDED NOT TO EXTUBATE PT TODAY. STATES " I ALREADY HAVE A PULMONARY CONSULTATION TO MANAGE VENTILATOR". COOLING MEASURES ALREADY IN PLACE.
--- NOTE | 2019-09-02 08:00 | NUR ---
AM ASSESSMENT COMPLETED S/P EXPLORATORY LAP.WITH TRANSVERSE COLON RESECTION. PT RUNNING TEMP. TACHYCARDIC. ON LIGHT SEDATION, VERSED AND FENTANYL. STILL ABLE TO FOLLOW SIMPLE COMMANDS. ORAL CARE PROVIDED AT THIS TIME. ALL MONITOR ALARMS VERIFIED.
[2019-09-02] MEDS: METOPROLOL TARTRATE 25 MG TAB PO SCH ×2 (10:00→21:47)
--- NOTE | 2019-09-02 10:00 | NUR ---
THERMOREGULATION TEMP INCREASED TO 100.3 PO COOLING MEASURES STARTED, ICE PACKS APPLIED TO BILAT. ARMPITS, BILAT. GROINS AND BEHIND PT'S NECK. BLOOD CULTURES COLLECTED X2 ONE BY RN FROM A-LINE ANE ONE PERIPHERAL FROM HOME THEATER SPECIALIST. DR. Adrian PRETTY WAS PAGED TO REQUEST FOR TYLENOL SUPPOSITORY PT IS NPO. PT STILL PENDING MULTI SITE LEASING CONSULTANT CONSULTATION. CONSULT ALREADY CALL IN BY WIREWORKER SUPERVISOR.
[2019-09-02] MEDS: cefTRIAXone 1GM/50ML D5W 50 ML IV SCH (10:15)
[2019-09-02] MEDS: SODIUM CHLOR 0.9% PF (SALINE LOCK) 10ML VIAL/SYR IV SCH ×2 (10:16→21:58)
--- NOTE | 2019-09-02 10:39 | NUR ---
Nutrition Followup Notes Wt: 102.0 kg Pt intubated sedated post sx per records when rounded this morning. Pt is currently NPO and to begin PN support from tonight per records. Est energy needs 5550-0287 kcal (14-18 kcal/kg BW 100.7kg), Est protein 60-76g (0.6-0.75g/kg BW 100.7kg r/t elevated RFTs, inc protein if RFT improve). Will reassess prn. LABS: BUN 19 H, CREAT 1.55 H, GLU 138 H, CA 7.4 L, ALB 2.4 L, PREALB 8.8 L GI: Pt has no BM reported with gastric drainage of 250 ml yesterday per RN doc. BS: 17 mod risk Refer to wound assessment report for full details. PES: 1) Obesity r/t caloric intake in excess of needs aeb pt BMI is 31.0kg/m2 which is obese 2) Altered nutrition related labs r/t current medical condition aeb elevated RFTs, hypoalb 3) Inadequate oral intake r/t current medical condition aeb pt with NPO diet order Comments 1) Advance PN support to meet > 75% of needs. 2) advance diet as medically feasible. 3) continue current plan of care. F/u high 2-3 days
--- NOTE | 2019-09-02 11:25 | NUR ---
NOTIFIED DR. Adrian PRETTY PT'S TEMP UP TO 102, DESPITE COOLING MEASURES , REQUESTED FOR TYLENOL SUPPOSITORY.
--- NOTE | 2019-09-02 11:29 | NUR ---
Hold PT per nursing.
[2019-09-02] MEDS: ACETAMINOPHEN 650 MG RECT SUPP PR PRN (12:10)
[2019-09-02] MEDS: METOPROLOL TARTRATE 1MG/1ML-5ML VIAL IV PRN ×3 (12:47→19:08)
[2019-09-02] MEDS ORDERED: MAGNESIUM SULFATE 1GM/100ML 100 ML IV ONE (13:15)
[2019-09-02] MEDS: fentaNYL Drip 2500mCg/250mlNS 250 ML IV SCH (14:14)
[2019-09-02] MEDS: hydrALAZINE HCL 20 MG/ML VL IV PRN (15:04)
--- NOTE | 2019-09-02 15:25 | NUR ---
I CALLED AND NOTIFIED DR. SHELTON OF PT'S INCREASED HR. DESPITE COOLING MEASURE, PT IS ON CHRONIC AFIB. TEMP STILL NOT COMING DOWN, DESPITE TYLENOL, COOLING BLANKET, TYLENOL, SCHEDULE ANTIBIOTICS. RX IVF BOLUS AND ALBUMIN. SEE EMAR.
[2019-09-02] MEDS ORDERED: ALBUMIN 25% 100 ML IV ONE (15:30)
[2019-09-02] MEDS ORDERED: SODIUM CHLORIDE 0.9% 1,000 ML IV ONE (15:30)
[2019-09-02] MEDS: SODIUM CHLORIDE 0.9% 1,000 ML IV SCH (16:00)
--- NOTE | 2019-09-02 16:00 | NUR ---
PT'S NIECE SUSHMA CALLED TO GET AN UPDATE ON PT'S CONDITION SHE WOULD LIKE DR. Adrian PRETTY TO CALL HER TOMORROW. I TOLD HER I'LL ENDORSE IT TO LANGUAGES AND LITERATURE INSTRUCTOR JUST IN CASE IF I GET FLOATED TOMORROW. PT'S NIECE UPDATED ON CURRENT VITALS, TREATMENTS AND POC, SHE VERBALIZED UNDERSTANDING.
--- NOTE | 2019-09-02 18:30 | NUR ---
PT RESPONDED WELL TO IVFB AND ALBUMIN, VITAL ARE FINALLY STABILIZING. PT RECEIVED METOPROLOL IVP TWICE , HYDRALAZINE ONCE FOR HTN. REPORT GIVEN TO DRAMA TEACHER RN. PT STILL PENDING TO BE SEEN BY SENIOR TELECOMMUNICATIONS TECHNICIAN.
[2019-09-02] MEDS ORDERED: TPN PER PHARMACY IV NR ×9 (20:00)
--- NOTE | 2019-09-02 20:15 | NUR ---
OPENING NOTE: INTUBATED AND SEDATED. DEEPLY SEDATED, GROSSLY UNRESPONSIVE. AFIB 120s. A LINE PRESSURES 120-130. NIBP SIMILAR. PER PACU, ANESTHESIOLOGIST AWARE, AND NEAR PATIENT'S BASELINE SO NO INTERVENTION WAS DONE. 8.0 ETT, 24 AT THE LIP. LS CTA, DIMINISHED TO BASES. EVEN AND UNLABORED BREATHING. MINIMAL ETT AND ORAL SECRETIONS. SpO2> 95% ON CURRENT VENT SETTINGS. ABD SOFT. HYPOACTIVE BS. NGT TO LCS, + AIR BOLUS. BRADY X1 TO LEFT ABDOMEN, PALE BLOODY OUTPUT. MLI WITH ORIGINAL SURGICAL DRESSING, CDI, WITH NO BREAKTHROUGH. ABDOMINAL BINDER IN PLACE. MCCABE PATENT AND INTACT, DRAINING CONSTANTINO URINE. RIGHT UPPER ARM PICC, CDI, AND PATENT WITH BLOOD RETURN. LEFT FOREARM 20 G PIV, CDI AND PATENT WITH BLOOD RETURN. LEFT RADIAL JUAN DAVID, PATENT AND CDI. NOTED WITH SCATTERED SCABS THROUGH OUT SKIN. NO PAIN BEHAVIORS IDENTIFIED. REINFORCED POC. MAINTAINED PATIENT SAFETY: BED LOCKED AND IN THE LOWEST POSITION, FREQUENT VISUAL CHECK.
--- NOTE | 2019-09-02 20:15 | NUR ---
ADVANCED NGT TO 70 CM AT NARES: WHEN PLACEMENT AUSCULTATED, GASTRIC CONTENTS POURED OUT HIS MOUTH.
--- NOTE | 2019-09-02 21:00 | NUR ---
BLOOD PRESSURE IS DECREASING - WILL WEAN SEDATION TOLERATED
--- NOTE | 2019-09-02 21:00 | NUR ---
SEDATION VACATION: WILL WEAN SEDATION TOLERATED. Addendum: 09/02/19 at 2145 by Rose Garcia RN RN Amended: Links added.
--- NOTE | 2019-09-02 23:35 | NUR ---
BG ON RIGHT HAND 222, BG ON LEFT HAND 184 - WILL MEDICATED PER LOWER BG TO NOT OVER MEDICATE
[2019-09-03] VITALS (103 sets, daily range): BP systolic 84–177; BP diastolic 40–108
[2019-09-03] MEDS: MIDAZOLAM DRIP 50 mg/50mL 50 ML IV SCH ×3 (01:20→12:47)
[2019-09-03 04:27] LABS: Basophils # (auto) 0 10 ^3/uL (0-0.2); Basophils % (auto) 0.5 % (0.0-2.0); Eosinophils # (auto) 0 10 ^3/uL (0-0.8); Hematocrit 25.8 % (41.0-53.0); Hemoglobin 8.9 g/dL (13.5-17.5); Lymphocytes # (auto) 0.4 10 ^3/uL (0.4-5.4); Lymphocytes % (auto) 7.7 % (10.0-50.0); Mean Corpuscular Hemoglobin 31.6 pg (28.0-32.0); Mean Corpuscular Hgb Conc. 34.4 g/dL (32.0-36.0); Mean Corpuscular Volume 91.7 fL (80.0-100.0); Monocytes # (auto) 0.3 10 ^3/uL (0-1.3); Neutrophils # (auto) 4.3 10 ^3/uL (1.6-8.6); Neutrophils % (auto) 85.8 % (37.0-80.0); Nucleated Red Blood Cells % 0.1 %; Platelet Count (auto) 102 10^3/uL (140-450); Red Blood Cells 2.81 10^6/uL (4.5-5.90); Red Cell Distribution Width 14.4 % (11.8-14.3)
[2019-09-03 04:45] LABS: Albumin 2.7 g/dL (3.4-5.0); Calcium 7.4 mg/dL (8.5-10.1); Magnesium 1.7 mg/dL (1.6-2.6); Potassium 3.4 mmol/L (3.5-5.1)
[2019-09-03] MEDS: fentaNYL Drip 2500mCg/250mlNS 250 ML IV SCH (04:46)
--- NOTE | 2019-09-03 04:46 | NUR ---
BED BATH WITH CHG WIPES, TRACIE CARE, MCCABE CARE, ORAL CARE, AND PARTIAL LINEN CHANGE COMPLETED
--- NOTE | 2019-09-03 04:46 | NUR ---
INCISION CARE: REMOVED PREVIOUS DRESSING. MLI WELL APPROXIMATED WITH ML INTACT. BRADY SUTURE INTACT. SCRUBBED BOTH SITES WITH CHLORHEXIDINE SWABS. COVERED WITH GAUZE AND SECURED WITH MEDIPORE TAPE
[2019-09-03 04:49] LABS: BUN/Creatinine Ratio 14.6; Phosphorus 1.1 mg/dL (2.5-4.90); Total Protein 5.6 g/dL (6.4-8.2)
[2019-09-03] MEDS: LIDOCAINE VISCOUS 2% 15ML UD PO SCH ×4 (05:31→22:00)
[2019-09-03] MEDS: SODIUM CHLORIDE 0.9% 1,000 ML IV SCH ×2 (05:49→22:57)
[2019-09-03] MEDS: ACCU-CHEK COMFORT CURVE STRIP VI SCH ×3 (05:49→18:21)
[2019-09-03] MEDS: InsuLIN REG 1unit/0.01ml Soln (100units/ml) SC SCH ×3 (05:49→18:00)
[2019-09-03] MEDS: metroNIDAZOLE 500MG/100ML 100 ML IV SCH ×3 (05:49→21:15)
--- NOTE | 2019-09-03 07:13 | NUR ---
REPORT AND CARE ENDORSED TO ALEJA. BRAD
--- NOTE | 2019-09-03 08:00 | NUR ---
AM ASSESSMENT COMPLETED. LABS REVIEWED. LT RADIAL A-LINE CALIBRATED AND ZEROED. ALL GTTS REVIEWED. PT REMAINS INTUBATED & SEDATED. CURRENTLY ON VERSED AT 10 & FENTANYL AT 100 MC/HR. WILL CONTINUE SLOWLY TITRATING DOWN TO SEE IF PT CAN HAVE A CPAP TRIAL TODAY. PT AFEBRILE, COOLING BLANKET UNDER PT TO KEEP TEMP CONTROLLED. ORAL CARE PROVIDED AND REPOSITIONED FOR COMFORT. SKIN REMAIN INTACT OTHER THAN SURGICAL INCISION.
--- NOTE | 2019-09-03 08:30 | NUR ---
DR. Siddhartha PRETTY ROUNDING ON PT I NOTIFIED HIM THAT PT'S NIECE SUSHMA WANTS TO BE UPDATED ON PT'S CONDITION HER TELEPHONE # WHERE SHE CAN BE REACHED AT IS I TRIED CONNECTING MD TO PT'S NIECE AT THIS TIME BUT CALL WENT [employer]. I LEFT HER A MESSAGE TO CALL BACK. I NOTIFIED MD OF LOW K, MG AND PHOS, I RECEIVED ORDERS TO REPLACE K AND MG.
[2019-09-03] MEDS ORDERED: POTASSIUM CHL 20MEQ/100ML 100 ML IV SCH (09:00)
[2019-09-03] MEDS: cefTRIAXone 1GM/50ML D5W 50 ML IV SCH ×2 (09:00→09:55)
--- NOTE | 2019-09-03 09:53 | NUR ---
PT AT BEDSIDE PERFORMING RANGE OF MOTION.
[2019-09-03] MEDS: MAGNESIUM SULFATE 1GM/100ML 100 ML IV SCH ×2 (09:54→11:04)
[2019-09-03] MEDS: METOPROLOL TARTRATE 25 MG TAB PO SCH ×4 (09:56→22:00)
[2019-09-03] MEDS: SODIUM CHLOR 0.9% PF (SALINE LOCK) 10ML VIAL/SYR IV SCH ×2 (09:56→21:07)
--- NOTE | 2019-09-03 10:04 | NUR ---
DR. SHELTON ROUNDING ON PT . UPDATED ON PT'S CONDITION HR. OUP AND CURRENT VITALS. NO NEW ORDERS RECEIVED. STILL REVIEWING LABS AND ROUNDING IN UNIT.
--- NOTE | 2019-09-03 11:09 | NUR ---
CORRECTION SUSHMA'S PHONE #
[2019-09-03] MEDS ORDERED: POTASSIUM PHOSPHATE 44 MEQ in D5W 5% 250 ML IV ONE (11:45)
[2019-09-03] MEDS ORDERED: CALCIUM GLUC 4.65meq/50ml D5AE 50 ML IV ONE (11:45)
--- NOTE | 2019-09-03 16:00 | NUR ---
PT'S NIECE CALLED TO GET AN UPDATE ON PT'S CONDITION, TO SEE IF PT WAS EXTUBATED YET, OR TO SEE IF METERS SUPERINTENDENT HAS ROUNDED ON PT. I UPDATED ON PT'S CURRENT CONDITION. PT'S NIECE WANT'S PRIMARY MD TO CALL HER TOMORROW TO UPDATE HER ON PT'S CONDITION. I TOLD HER I'LL PASS ON INFORMATION TO MANAGER TRANSITION AND I'LL WRITE IT DOWN IN FRONT OF PT'S CHART. DHE WAS UPDATED TODAY BY DR. Adrian PRETTY BUT SHE STILL WANT TO BE UPDATED TOMORROW BY PRIMARY MD.
[2019-09-03] MEDS: hydrALAZINE HCL 20 MG/ML VL IV PRN (17:36)
[2019-09-03] MEDS: ACETAMINOPHEN 650 MG RECT SUPP PR PRN (18:30)
--- NOTE | 2019-09-03 18:45 | NUR ---
DR. MCKINNEY ROUNDING ON PT UPDATED ON PT'S CURRENT CONDITION, UNABLE TO WEAN OFF SEDATION D/T HTN BP UP TO 180'S INCREASED HR UP TO THE 140-160 D/T INCREASED TEMP CURRENT TEMP 100.4 , COOLING MEASURES ALREADY IN PLACE. TYLENOL SUPP. ICE PACKS AND COOLING BLANKET. ORDERED AMIODARONE GTT WITHOUT A BOLUS PER PROTOCOL FOR AFIB WITH RVR.
[2019-09-03] MEDS ORDERED: AMIODARONE 450mg/250ml AE 250 ML IV SCH (19:15)
[2019-09-03] MEDS ORDERED: TPN PER PHARMACY IV NR ×8 (20:00)
[2019-09-04] VITALS (78 sets, daily range): BP systolic 73–175; BP diastolic 33–114
[2019-09-04] MEDS: AMIODARONE 450mg/250ml AE 250 ML IV SCH ×2 (01:49→10:01)
[2019-09-04] MEDS: MIDAZOLAM DRIP 50 mg/50mL 50 ML IV SCH ×2 (02:06→16:53)
[2019-09-04 04:10] LABS: Basophils # (auto) 0 10 ^3/uL (0-0.2); Basophils % (auto) 0.6 % (0.0-2.0); Eosinophils # (auto) 0 10 ^3/uL (0-0.8); Eosinophils % (auto) 0.6 % (0.0-7.0); Hematocrit 25.5 % (41.0-53.0); Hemoglobin 8.6 g/dL (13.5-17.5); Lymphocytes # (auto) 0.5 10 ^3/uL (0.4-5.4); Lymphocytes % (auto) 10.7 % (10.0-50.0); Mean Corpuscular Hemoglobin 31.4 pg (28.0-32.0); Mean Corpuscular Hgb Conc. 33.8 g/dL (32.0-36.0); Mean Corpuscular Volume 92.8 fL (80.0-100.0); Monocytes # (auto) 0.3 10 ^3/uL (0-1.3); Monocytes % (auto) 7.2 % (0.0-12.0); Neutrophils # (auto) 3.6 10 ^3/uL (1.6-8.6); Neutrophils % (auto) 80.9 % (37.0-80.0); Nucleated Red Blood Cells % 0.1 %; Platelet Count (auto) 84 10^3/uL (140-450); Red Blood Cells 2.75 10^6/uL (4.5-5.90); Red Cell Distribution Width 14.6 % (11.8-14.3); White Blood Cell 4.5 10^3/uL (4.4-10.8)
[2019-09-04 04:31] LABS: Albumin 1.8 g/dL (3.4-5.0); Magnesium 2.1 mg/dL (1.6-2.6); Potassium 3.2 mmol/L (3.5-5.1)
[2019-09-04 04:35] LABS: BUN/Creatinine Ratio 16.8; Bilirubin, Total 0.8 mg/dL (0.2-1.0); Total Protein 4.3 g/dL (6.4-8.2)
[2019-09-04] MEDS: metroNIDAZOLE 500MG/100ML 100 ML IV SCH ×3 (05:23→22:00)
[2019-09-04] MEDS: LIDOCAINE VISCOUS 2% 15ML UD PO SCH (05:24)
[2019-09-04] MEDS: ACCU-CHEK COMFORT CURVE STRIP VI SCH ×4 (05:27→17:04)
[2019-09-04] MEDS: InsuLIN REG 1unit/0.01ml Soln (100units/ml) SC SCH ×4 (06:00→17:04)
[2019-09-04] MEDS: cefTRIAXone 1GM/50ML D5W 50 ML IV SCH (08:45)
[2019-09-04] MEDS: SODIUM CHLOR 0.9% PF (SALINE LOCK) 10ML VIAL/SYR IV SCH ×2 (08:45→22:00)
[2019-09-04] MEDS: METOPROLOL TARTRATE 25 MG TAB PO SCH ×2 (09:30→22:00)
[2019-09-04] MEDS: fentaNYL Drip 2500mCg/250mlNS 250 ML IV SCH (09:31)
[2019-09-04] MEDS ORDERED: POTASSIUM PHOSPHATE 22 MEQ in SODIUM CHL 0.9% 100 ML IV ONE (11:30)
--- NOTE | 2019-09-04 11:36 | NUR ---
Dr. Wallace at bedside.
--- NOTE | 2019-09-04 12:04 | NUR ---
Nutrition Followup Notes Wt: 107.0 kg Pt intubated sedated with TPN running at 57 ml/hr per medication order. TPN at this rate provides 1430 kcal, 70g protein, 1150 NCP. This rate provides 79-101% of energy needs and 92-117% of protein needs. Est energy needs 7012-6549 kcal (14-18 kcal/kg BW 100.7kg), Est protein 60-76g (0.6-0.75g/kg BW 100.7kg r/t elevated RFTs, inc protein if RFT improve). Will reassess prn. LABS: BUN 20H, Alb 1.8L, Ca 7.0L, Gluc 134H GI: Pt has no BM reported with gastric drainage of 250 ml 09/03 per RN doc. BS: 17 mod risk Refer to wound assessment report for full details. PES: 1) Obesity r/t caloric intake in excess of needs aeb pt BMI is 31.0kg/m2 which is obese 2) Altered nutrition related labs r/t current medical condition aeb elevated RFTs, hypoalb 3) Inadequate oral intake r/t current medical condition aeb pt with NPO diet order Comments 1) Continue PN support to meet > 75% of needs. 2) advance diet as medically feasible. 3) continue current plan of care. F/u high 2-3 days
--- NOTE | 2019-09-04 12:42 | NUR ---
Dr. Singleton at bedside.
[2019-09-04] MEDS: SODIUM CHLORIDE 0.9% 1,000 ML IV SCH (15:49)
--- NOTE | 2019-09-04 16:44 | NUR ---
Dr. Garza at bedside.
[2019-09-04] MEDS: hydrALAZINE HCL 20 MG/ML VL IV PRN (16:54)
--- NOTE | 2019-09-04 17:29 | NUR ---
Dr. Jones notified patient's respirations are 30-50. Patient is breathing over the vent. Orders received to increase patient's Versed gtt to 8ml/hr per protocol.
[2019-09-04] MEDS ORDERED: TPN PER PHARMACY IV NR ×10 (20:00)
[2019-09-05] VITALS (103 sets, daily range): BP systolic 69–176; BP diastolic 33–127
[2019-09-05] MEDS: metroNIDAZOLE 500MG/100ML 100 ML IV SCH ×3 (05:09→22:13)
[2019-09-05] MEDS: InsuLIN REG 1unit/0.01ml Soln (100units/ml) SC SCH ×4 (05:10→18:45)
[2019-09-05] MEDS: ACCU-CHEK COMFORT CURVE STRIP VI SCH ×5 (05:29→23:54)
[2019-09-05 08:30] LABS: Basophils # (auto) 0 10 ^3/uL (0-0.2); Basophils % (auto) 0.9 % (0.0-2.0); Eosinophils # (auto) 0.1 10 ^3/uL (0-0.8); Eosinophils % (auto) 1.8 % (0.0-7.0); Hematocrit 25.3 % (41.0-53.0); Hemoglobin 8.5 g/dL (13.5-17.5); Lymphocytes # (auto) 0.7 10 ^3/uL (0.4-5.4); Lymphocytes % (auto) 15.3 % (10.0-50.0); Mean Corpuscular Hemoglobin 30.8 pg (28.0-32.0); Mean Corpuscular Hgb Conc. 33.6 g/dL (32.0-36.0); Mean Corpuscular Volume 91.7 fL (80.0-100.0); Monocytes # (auto) 0.4 10 ^3/uL (0-1.3); Monocytes % (auto) 8.4 % (0.0-12.0); Neutrophils # (auto) 3.2 10 ^3/uL (1.6-8.6); Neutrophils % (auto) 73.6 % (37.0-80.0); Platelet Count (auto) 105 10^3/uL (140-450); Red Blood Cells 2.75 10^6/uL (4.5-5.90); Red Cell Distribution Width 14.6 % (11.8-14.3); White Blood Cell 4.4 10^3/uL (4.4-10.8)
[2019-09-05 08:47] LABS: Albumin 1.7 g/dL (3.4-5.0); Calcium 7.1 mg/dL (8.5-10.1); Magnesium 2.2 mg/dL (1.6-2.6); Potassium 3.6 mmol/L (3.5-5.1)
[2019-09-05 08:51] LABS: BUN/Creatinine Ratio 19.5; Phosphorus 2.8 mg/dL (2.5-4.90); Total Protein 4.6 g/dL (6.4-8.2)
--- NOTE | 2019-09-05 11:00 | NUR ---
DR HUYNH VISITS AND EXAMINES PATIENT - ORDER RECEIVED.
[2019-09-05] MEDS: METOPROLOL TARTRATE 25 MG TAB PO SCH ×2 (11:11→22:00)
[2019-09-05] MEDS: cefTRIAXone 1GM/50ML D5W 50 ML IV SCH (11:11)
[2019-09-05] MEDS: AMIODARONE 450mg/250ml AE 250 ML IV SCH (11:12)
[2019-09-05] MEDS: SODIUM CHLOR 0.9% PF (SALINE LOCK) 10ML VIAL/SYR IV SCH ×2 (11:12→22:13)
--- NOTE | 2019-09-05 11:21 | NUR ---
PATIENT SUCTIONED OF MOD AMT DK GREEN/BROWN SECRETIONS PER ETT - R.T. NOTIFIED AND LAVAGED PATIENT - NO FURTHER DISCOLORED SPUTUM NOTED. LUNG SOUNDS VERY DIMINISHED ON RIGHT SIDE AND CLEAR ON LEFT SIDE - SAO2 98% - REPEAT CXR ORDERED AND OBTAINED.
--- NOTE | 2019-09-05 12:03 | NUR ---
DR SCHMIDT NOTIFIED OF CXR RESULTS - ORDERS RECEIVED TO PROCEED WITH CPAP TRIAL -R.T. NOTIFIED VERSED AND FENTANYL STOPPED
--- NOTE | 2019-09-05 12:10 | NUR ---
Respiratory note: INCREASED WORK OF BREATHING NOTICED, RR IN THE 30'S.PATIENT UNABLE TO OPEN EYES OR FOLLOW COMMANDS.
[2019-09-05] MEDS: SODIUM CHLORIDE 0.9% 1,000 ML IV SCH (14:31)
[2019-09-05] MEDS: fentaNYL Drip 2500mCg/250mlNS 250 ML IV SCH (14:43)
[2019-09-05] MEDS: DexMEDEtomidine 400 MCG in D5W 5% 96 ML IV SCH (14:45)
[2019-09-05] MEDS: MIDAZOLAM DRIP 50 mg/50mL 50 ML IV SCH (19:59)
[2019-09-05] MEDS ORDERED: TPN PER PHARMACY IV NR ×10 (20:00)
--- NOTE | 2019-09-05 20:30 | NUR ---
WOUND ASSESSMENT PRESSURE INJURY NOTED ON UPPER LIP UNDER ETT CONNER. PHOTO TAKEN FOR REFERENCE. OPTIFOAM GENTLE KEPT OVER THE PRESSURE INJURY SITE UNDER THE ETT CONNER.
[2019-09-06] VITALS (103 sets, daily range): BP systolic 71–188; BP diastolic 21–93
[2019-09-06 04:40] LABS: Basophils # (auto) 0 10 ^3/uL (0-0.2); Basophils % (auto) 0.9 % (0.0-2.0); Eosinophils # (auto) 0.1 10 ^3/uL (0-0.8); Eosinophils % (auto) 1.5 % (0.0-7.0); Hemoglobin 8.6 g/dL (13.5-17.5); Lymphocytes # (auto) 0.7 10 ^3/uL (0.4-5.4); Mean Corpuscular Hemoglobin 30.7 pg (28.0-32.0); Mean Corpuscular Hgb Conc. 33.1 g/dL (32.0-36.0); Mean Corpuscular Volume 92.8 fL (80.0-100.0); Monocytes # (auto) 0.5 10 ^3/uL (0-1.3); Monocytes % (auto) 11.8 % (0.0-12.0); Neutrophils % (auto) 69.8 % (37.0-80.0); Platelet Count (auto) 111 10^3/uL (140-450); Red Cell Distribution Width 14.6 % (11.8-14.3); White Blood Cell 4.3 10^3/uL (4.4-10.8)
[2019-09-06 05:03] LABS: Albumin 1.7 g/dL (3.4-5.0); BUN/Creatinine Ratio 20.2; Bilirubin, Total 0.7 mg/dL (0.2-1.0); Calcium 6.8 mg/dL (8.5-10.1); Magnesium 2.2 mg/dL (1.6-2.6); Phosphorus 2.5 mg/dL (2.5-4.90); Total Protein 4.5 g/dL (6.4-8.2)
[2019-09-06] MEDS: AMIODARONE 450mg/250ml AE 250 ML IV SCH ×2 (05:10→21:29)
[2019-09-06] MEDS: SODIUM CHLORIDE 0.9% 1,000 ML IV SCH ×2 (05:15→18:03)
[2019-09-06] MEDS: metroNIDAZOLE 500MG/100ML 100 ML IV SCH (05:40)
[2019-09-06] MEDS: ACCU-CHEK COMFORT CURVE STRIP VI SCH ×3 (06:28→18:03)
[2019-09-06] MEDS: InsuLIN REG 1unit/0.01ml Soln (100units/ml) SC SCH ×4 (06:28→18:04)
--- NOTE | 2019-09-06 09:00 | NUR ---
SEDATION VACATION FENTANYL DECREASED - WILL MONITOR FOR WAKEFULNESS/ INCREASED ALERTNESS. Addendum: 09/06/19 at 1557 by Ria Almeida RN Amended: Links added.
[2019-09-06] MEDS: cefTRIAXone 1GM/50ML D5W 50 ML IV SCH (09:18)
[2019-09-06] MEDS: DexMEDEtomidine 400 MCG in D5W 5% 96 ML IV SCH ×2 (09:27→13:30)
--- NOTE | 2019-09-06 10:05 | NUR ---
DR HUYNH VISITS AND EXAMINES PATIENT - ORDERS RECEIVED.PATIENT OPENS EYES TO COMMAND BUT DOES NOT MOVE EXTREMITIES TO COMMAND. FACIAL GRIMACING NOTED WITH ORAL CARE.
--- NOTE | 2019-09-06 11:30 | NUR ---
WOUND CARE NOTE: PATIENT NOTED BY BEDSIDE NURSE TO HAVE ACQUIRED NON BLANCHABLE AREA TO THE UPPER LIP UNDER ET SECUREMENT DEVICE. WOUND PHOTO WAS TAKEN AT THAT TIME BY BEDSIDE NURSE. PATIENT CONTINUES TO BE INTUBATED, SEDATED. HE IS RESTING ON ICU [facility] BED. OPTIFOAM WAS PLACED FOR CUSHIONING/PROTECTION. PATIENT HAS INTACT PURPLE DTI MEASURING 1 X 3 CM. AREA IS NON BLANCHABLE. RECOMMEND: CONTINUE WITH APPLICATION OF FOAM TO UPPER LIP, UNDER PLASTIC ET SECUREMENT DEVICE, FREQUENT TURN SCHEDULE Q 2 HOURS, PRN CONDITION PERMITS, WITH PRESSURE REDISTRIBUTION USING PILLOWS/WEDGES, BID/PRN APPLICATION MOISTURE BARRIER CREAM, OPTIFOAM GENTLE SACRAL DRESSING, DIETARY CONSULT FOR LOW LAKHWINDER SCORE OF 12, CONTINUED MONITORING BY WOUND CARE TEAM, SKIN/WOUND CARE PLAN. Addendum: 09/06/19 at 1622 by Yuki Becerra RN Amended: Links added.
[2019-09-06] MEDS: METOPROLOL TARTRATE 25 MG TAB PO SCH ×2 (12:17→21:32)
[2019-09-06] MEDS: PIPERACILLIN-TAZOB 3.375GM 100 ML IV SCH ×2 (12:18→20:19)
[2019-09-06] MEDS: SODIUM CHLOR 0.9% PF (SALINE LOCK) 10ML VIAL/SYR IV SCH ×2 (12:18→21:31)
--- NOTE | 2019-09-06 12:35 | NUR ---
Nutrition Followup Notes Wt: 109.7 kg Pt intubated sedated with TPN running at 79 ml/hr providing 1890 kcal, 100g protein, 1530 NCP. This rate provides 104-134% of energy needs and 131-166% of protein needs. Est energy needs 7934-6046 kcal (14-18 kcal/kg BW 100.7kg), Est protein 60-76g (0.6-0.75g/kg BW 100.7kg r/t elevated RFTs, inc protein if RFT improve). Will reassess prn. LABS: GLU 146 H, CA 6.8 L, ALB 1.7 L, BUN 26 H GI: Pt has no BM reported with gastric drainage of 50 ml 09/03 per RN doc. BS: 12 risk Refer to wound assessment report for full details. PES: 1) Obesity r/t caloric intake in excess of needs aeb pt BMI is 31.0kg/m2 which is obese 2) Altered nutrition related labs r/t current medical condition aeb elevated RFTs, hypoalb 3) Inadequate oral intake r/t current medical condition aeb pt with NPO diet order Comments 1) Continue PN support to meet > 75% of needs. 2) advance diet as medically feasible. 3) continue current plan of care. F/u high 2-3 days
[2019-09-06] MEDS: MIDAZOLAM DRIP 50 mg/50mL 50 ML IV SCH (12:39)
--- NOTE | 2019-09-06 13:30 | NUR ---
PRECEDEX STARTED AT 0.2MCG. PATIENT OPENING EYES TO NAME BUT NOT FOLLOWING COMMANDS. FENTANYL DECREASED TO 10MCG.
[2019-09-06] MEDS ORDERED: NOREPINEPHRINE 8 MG/250ML KIT 250 ML IV ONE (14:14)
[2019-09-06] MEDS ORDERED: SODIUM CHLORIDE 0.9% 500 ML IV ONE (14:15)
--- NOTE | 2019-09-06 14:15 | NUR ---
BP 76 SUSTAINED - DR HUYNH NOTIFIED - ORDERS RECEIVED. FLUID BOLUS STARTED PER ORDERS. SBP 67 SUSTAINED- LEVOPHED STARTED - SEE SPREADSHEET. WILL CONTINUE TO MONITOR BP PER ARTERIAL LINE. Addendum: 09/06/19 at 2122 by Ria Almeida RN PRECEDEX STOPPED
[2019-09-06] MEDS: NOREPINEPHRINE 8 MG/250ML KIT 250 ML IV SCH (14:28)
[2019-09-06] MEDS: fentaNYL Drip 2500mCg/250mlNS 250 ML IV SCH (16:41)
--- NOTE | 2019-09-06 16:45 | NUR ---
DR SCHMIDT VISITS AND EXAMINES PATIENT - ORDERS RECEIVED.
--- NOTE | 2019-09-06 18:30 | NUR ---
ICE PACKS APPLIED TO BILAT GROIN AND AXILLA FOR ELEVATED TEMP.
--- NOTE | 2019-09-06 19:00 | NUR ---
DR HERRON NOTIFIED OF 750 ML FROM , ELEVATED TEMP - ORDERS RECEIVED.
[2019-09-06] MEDS ORDERED: TPN*HIGH CONC* PER PHARMACY IV NR ×11 (20:00)
[2019-09-07] VITALS (105 sets, daily range): BP systolic 73–163; BP diastolic 34–101
[2019-09-07] MEDS: InsuLIN REG 1unit/0.01ml Soln (100units/ml) SC SCH ×4 (00:14→18:33)
[2019-09-07] MEDS: ACCU-CHEK COMFORT CURVE STRIP VI SCH ×4 (00:14→18:32)
[2019-09-07] MEDS: PIPERACILLIN-TAZOB 3.375GM 100 ML IV SCH ×4 (00:19→19:00)
[2019-09-07 04:01] LABS: Basophils # (auto) 0 10 ^3/uL (0-0.2); Basophils % (auto) 0.6 % (0.0-2.0); Eosinophils # (auto) 0.1 10 ^3/uL (0-0.8); Eosinophils % (auto) 1.4 % (0.0-7.0); Hematocrit 24.2 % (41.0-53.0); Lymphocytes # (auto) 0.7 10 ^3/uL (0.4-5.4); Lymphocytes % (auto) 17.7 % (10.0-50.0); Mean Corpuscular Hgb Conc. 33.2 g/dL (32.0-36.0); Mean Corpuscular Volume 93.2 fL (80.0-100.0); Monocytes # (auto) 0.5 10 ^3/uL (0-1.3); Monocytes % (auto) 12.1 % (0.0-12.0); Neutrophils # (auto) 2.8 10 ^3/uL (1.6-8.6); Neutrophils % (auto) 68.2 % (37.0-80.0); Nucleated Red Blood Cells % 0.2 %; Platelet Count (auto) 113 10^3/uL (140-450); Red Cell Distribution Width 14.7 % (11.8-14.3); White Blood Cell 4.1 10^3/uL (4.4-10.8)
[2019-09-07 04:22] LABS: Potassium 4.3 mmol/L (3.5-5.1)
[2019-09-07 04:28] LABS: Albumin 1.6 g/dL (3.4-5.0); BUN/Creatinine Ratio 24.2; Bilirubin, Total 0.5 mg/dL (0.2-1.0); Calcium 6.9 mg/dL (8.5-10.1); Magnesium 2.4 mg/dL (1.6-2.6); Phosphorus 2.9 mg/dL (2.5-4.90); Total Protein 4.5 g/dL (6.4-8.2)
[2019-09-07] MEDS: AMIODARONE 450mg/250ml AE 250 ML IV SCH ×2 (05:49→12:00)
[2019-09-07] MEDS: MIDAZOLAM DRIP 50 mg/50mL 50 ML IV SCH ×2 (05:49→21:59)
--- NOTE | 2019-09-07 09:00 | NUR ---
SEDATION VACATION HELD SECONDARY TO CRITICAL ABG RESULTS AND VT EPISODE THIS AM Addendum: 09/07/19 at 2104 by Ria Almeida RN Amended: Links added. Addendum: 09/07/19 at 2107 by Ria Almeida RN ERROR WRONG CHART
--- NOTE | 2019-09-07 09:30 | NUR ---
SEE IV SPREAD SHEET FOR TITRATION OF FENTANYL.
--- NOTE | 2019-09-07 10:00 | NUR ---
DR HERRON NOTIFIED OF HGB 8.0/24.2 - NO ORDERS AT THIS TIME.
[2019-09-07] MEDS: SODIUM CHLORIDE 0.9% 1,000 ML IV SCH ×2 (10:17→21:29)
--- NOTE | 2019-09-07 11:07 | NUR ---
Nutrition Followup Notes Wt: 108.2 kg Pt intubated sedated with TPN running at 85 ml/hr providing 1895 kcal, 165g protein, 1235 NCP. This rate provides 104-134% of energy needs and 191-153% of protein needs. Est energy needs 7364-1292 kcal (14-18 kcal/kg BW 100.7kg), Est protein 86-108g (0.8-1g/kg BW 100.7kg). Will reassess prn. LABS: BUN 30H, GLUC 133H, Alb 1.6L, Ca 6.9L GI: Pt has no BM reported with gastric drainage of 1600 ml 09/06 per RN doc. BS: 12 risk Refer to wound assessment report for full details. PES: 1) Obesity r/t caloric intake in excess of needs aeb pt BMI is 31.0kg/m2 which is obese Partially resolved: 2) Altered nutrition related labs r/t current medical condition aeb elevated RFTs, hypoalb 3) Inadequate oral intake r/t current medical condition aeb pt with NPO diet order Comments 1) Continue PN support to meet > 75% of needs. 2) advance diet as medically feasible. 3) continue current plan of care. F/u high 2-3 days
--- NOTE | 2019-09-07 11:35 | NUR ---
CPAP TRIAL INITIATED AT THIS TIME, PS 7 PEEP 5, 30% FIO2. PT OFF SEDATION, PT ON FENTANYL DRIP AND IS AWAKE AND FOLLOWS COMMANDS. SPO2 97%, RR 30, VT 463. RN SWAPNIL AWARE OF CPAP TRIAL WELL.
--- NOTE | 2019-09-07 12:11 | NUR ---
CPAP TRIAL TERMINATED AT THIS TIME DUE TO PT TACHYPNEIC, RR 45, ALSO INCREASED WOB NOTED. PT SWITCHED BACK TO AC MODE ON PREVIOUS SETTINGS OF AC RR 14, VT 550, PEEP 5, 30% FIO2. BRAD KRAFT AT BEDSIDE AWARE.
[2019-09-07] MEDS: PANTOPRAZOLE 40 MG/10 ML VIAL INJ IV SCH (13:13)
[2019-09-07] MEDS: SODIUM CHLOR 0.9% PF (SALINE LOCK) 10ML VIAL/SYR IV SCH ×2 (13:13→22:00)
[2019-09-07] MEDS: METOPROLOL TARTRATE 25 MG TAB PO SCH ×2 (13:15→21:28)
[2019-09-07] MEDS: NOREPINEPHRINE 8 MG/250ML KIT 250 ML IV SCH (17:30)
--- NOTE | 2019-09-07 17:45 | NUR ---
DR SCHMIDT VISITS AND EXAMINES PATIENT - ORDERS RECEIVED.
--- NOTE | 2019-09-07 18:45 | NUR ---
SPOKE TO PATIENT'S NIECE - UPDATED ON PATIENT CONDITION, CPAP TRIAL, AND POC - VERBALIZED UNDERSTANDING.
[2019-09-07] MEDS ORDERED: TPN*HIGH CONC* PER PHARMACY IV NR ×11 (20:00)
[2019-09-07] MEDS: fentaNYL Drip 2500mCg/250mlNS 250 ML IV SCH (23:50)
[2019-09-08] VITALS (92 sets, daily range): BP systolic 64–147; BP diastolic 41–109
[2019-09-08] MEDS: AMIODARONE 450mg/250ml AE 250 ML IV SCH ×2 (03:31→20:15)
[2019-09-08 04:13] LABS: Albumin 1.7 g/dL (3.4-5.0); Calcium 7.4 mg/dL (8.5-10.1); Magnesium 2.4 mg/dL (1.6-2.6); Potassium 4.5 mmol/L (3.5-5.1)
[2019-09-08 04:17] LABS: BUN/Creatinine Ratio 28.4; Bilirubin, Total 0.4 mg/dL (0.2-1.0); Phosphorus 2.6 mg/dL (2.5-4.90); Total Protein 4.8 g/dL (6.4-8.2)
[2019-09-08] MEDS: PIPERACILLIN-TAZOB 3.375GM 100 ML IV SCH ×4 (05:41→17:13)
[2019-09-08] MEDS: ACCU-CHEK COMFORT CURVE STRIP VI SCH ×4 (05:43→17:13)
[2019-09-08] MEDS: InsuLIN REG 1unit/0.01ml Soln (100units/ml) SC SCH ×4 (05:43→17:13)
[2019-09-08] MEDS: METOPROLOL TARTRATE 25 MG TAB PO SCH ×2 (09:08→22:00)
[2019-09-08] MEDS: SODIUM CHLOR 0.9% PF (SALINE LOCK) 10ML VIAL/SYR IV SCH (10:11)
[2019-09-08] MEDS: PANTOPRAZOLE 40 MG/10 ML VIAL INJ IV SCH (10:15)
--- NOTE | 2019-09-08 10:30 | NUR ---
Respiratory note: PT PLACED ON CPAP TRIAL. PS 7, CPAP 5, FI02 30%. PT AWAKE, ALERT AND RESPONSIVE. FOLLOWING COMMANDS. HR 85, RR 16, BP 134/52, SP02 98%. PT TOLERATING WELL. WILL CONT TO MONITOR.
--- NOTE | 2019-09-08 10:30 | NUR ---
CPAP TRIAL STARTED AT THIS TIME CURRENT HR 84, RR 14, BP 134/52, TEMP 98.1 RECTALLY. WILL CONTINUE TO MONITOR PATIENT CLOSELY. WILFREDO HODGESS ON PT AT THIS TIME.
--- NOTE | 2019-09-08 11:30 | NUR ---
Respiratory note: ABG DRAWN AT THIS TIME ON CPAP TRIAL. PT NODS IT IS HARD FOR HIM TO BREATHE AND HE IS GETTING TIRED. PT WORK OF BREATHING IS INCREASING, RR INCREASING. PT IS USING ACCESSORY MUSCLES AND BELLY BREATHING. PT SWITCHED BACK OVER TO PREVIOUS SETTINGS.
--- NOTE | 2019-09-08 11:45 | NUR ---
Respiratory note: DR. ALVAREZ CALLED WITH CPAP TRIAL. MSG LEFT WITH RESULTS.
[2019-09-08] MEDS ORDERED: PROPOFOL 100 ML IV ONE (13:37)
[2019-09-08] MEDS: PROPOFOL 100 ML IV SCH ×2 (14:03→20:48)
[2019-09-08] MEDS: NOREPINEPHRINE 8 MG/250ML KIT 250 ML IV SCH (14:04)
[2019-09-08] MEDS ORDERED: FUROSEMIDE 40 MG/4 ML VIAL ONE (15:38)
--- NOTE | 2019-09-08 15:44 | NUR ---
DR. MCKINNEY AT BEDSIDE: ORDERS MD UPDATED ON PT'S STATUS, LABS AND FAILED CPAP ATTEMPT FROM EARLIER TODAY. ORDERS GIVEN AND TO BE CARRIED OUT. CONTINUE CARE. Addendum: 09/08/19 at 1545 by Sydnie Allen RN PENDING CPAP TRIAL PER PROTOCOL IN AM.
[2019-09-08] MEDS ORDERED: FUROSEMIDE 40 MG/4 ML VIAL IV ONE (15:45)
[2019-09-08] MEDS: fentaNYL Drip 2500mCg/250mlNS 250 ML IV SCH (16:38)
--- NOTE | 2019-09-08 19:30 | NUR ---
OPENING NOTES ASSUMED CARE, STILL ON VENT AND SEDATION WITH FENTANYL AND PROPOFOL, ON LEVOPHED AND AMIODARONE DRIPS, SEE IV SPREADSHEET FOR TITRATION, MCCABE CATHETER DRAINING TO A CLEAR URINE, NGT IN PLACE, POST-OP INCISION IS CLEAN, DRY AND INTACT, BRADY DRAIN WITH SEROSANGUINEOUS OUTPUT. BED IN LOWEST POSITION WITH SIDE RAILS UP, BED ALARM ON. WILL CONTINUE CARE.
[2019-09-08] MEDS ORDERED: TPN*HIGH CONC* PER PHARMACY IV NR ×10 (20:00)
[2019-09-09] VITALS (105 sets, daily range): BP systolic 73–153; BP diastolic 37–124
[2019-09-09] MEDS: PIPERACILLIN-TAZOB 3.375GM 100 ML IV SCH ×5 (01:02→23:33)
[2019-09-09] MEDS: SODIUM CHLOR 0.9% PF (SALINE LOCK) 10ML VIAL/SYR IV SCH ×3 (01:03→22:00)
[2019-09-09] MEDS: NOREPINEPHRINE 8 MG/250ML KIT 250 ML IV SCH (01:13)
--- NOTE | 2019-09-09 02:00 | NUR ---
DRESSING CLEANSED MIDLINE SURGICAL INCISION WITH CHLORAPREP AND COVERED WITH PRIMAPORE DRESSING, LLQ BRADY DRAIN COVERED WITH GAUZE.
--- NOTE | 2019-09-09 03:00 | NUR ---
MORNING CARE DONE
--- NOTE | 2019-09-09 05:00 | NUR ---
PROPOFOL OFF, PT IS AWAKE AND CAN FOLLOW SIMPLE COMMANDS, MITTS STILL ON BOTH HANDS,
[2019-09-09 05:13] LABS: Basophils # (auto) 0.1 10 ^3/uL (0-0.2); Basophils % (auto) 0.9 % (0.0-2.0); Hemoglobin 8.1 g/dL (13.5-17.5); Lymphocytes # (auto) 1.2 10 ^3/uL (0.4-5.4); Monocytes # (auto) 0.8 10 ^3/uL (0-1.3)
[2019-09-09 05:17] LABS: Eosinophils # (auto) 0.1 10 ^3/uL (0-0.8); Eosinophils % (auto) 2.2 % (0.0-7.0); Hematocrit 23.9 % (41.0-53.0); Lymphocytes % (auto) 17.8 % (10.0-50.0); Mean Corpuscular Hemoglobin 31.3 pg (28.0-32.0); Mean Corpuscular Volume 92.2 fL (80.0-100.0); Neutrophils # (auto) 4.5 10 ^3/uL (1.6-8.6); Neutrophils % (auto) 67.1 % (37.0-80.0); Platelet Count (auto) 208 10^3/uL (140-450); Red Cell Distribution Width 14.2 % (11.8-14.3); White Blood Cell 6.8 10^3/uL (4.4-10.8)
[2019-09-09 05:28] LABS: Albumin 1.8 g/dL (3.4-5.0); Calcium 7.5 mg/dL (8.5-10.1); Magnesium 2.3 mg/dL (1.6-2.6); Potassium 4.6 mmol/L (3.5-5.1)
[2019-09-09 05:31] LABS: BUN/Creatinine Ratio 31.8; Bilirubin, Total 0.3 mg/dL (0.2-1.0); Phosphorus 3.6 mg/dL (2.5-4.90); Total Protein 5.2 g/dL (6.4-8.2)
[2019-09-09] MEDS: InsuLIN REG 1unit/0.01ml Soln (100units/ml) SC SCH ×5 (06:00→23:34)
[2019-09-09] MEDS: ACCU-CHEK COMFORT CURVE STRIP VI SCH ×5 (06:14→23:33)
--- NOTE | 2019-09-09 07:30 | NUR ---
ASSESS- PT. LYING IN BED ON VENT SIZE # 8.0 ET, 26 AT THE LIP, AC-14, TV-550, PEEP-5, FIO2-30%. LUNGS CLEAR WILFREDO. INSPIRATORY AND EXPIRATORY. PT. HAS GAG/COUGH REFLEX. OPENS EYES SPONTANEOUSLY, TRACKING. LOOKS AT YOU WHEN NAME CALLED. ON FENTANYL GTT. AT 60 MCG. WILFREDO. HAND MITTENS IN PLACE TO PREVENT PULLING OF TUBES. PT. REACHES ARMS UP WILFREDO. TOWARDS ET/FACE. NGT RT. NARE TO LIS WITH BILE DRAINAGE. BOWEL SOUNDS ABSENT ALL FOUR QUADRANTS. ABD. SOFT, FLAT. F/C TO GRAVITY WITH CLEAR YELLOW URINE. MID-LINE ABD. INCISION WITH DSG. D/I. BRADY TO ABD. BULB SUCTION WITH SEROSANGIOUS DRAINGE. PICC RT. UPPER ARM DOUBLE LUMEN INTACT. AMIODARONE GTT. AT 0.5 MG./MIN. RECTAL PROBE IN PLACE. TPN AT 85 CC/HR.
--- NOTE | 2019-09-09 07:55 | NUR ---
DR. Siddhartha PRETTY Provider/Hospitalist at bedside. GAVE UPDATE ON PT.
[2019-09-09] MEDS: METOPROLOL TARTRATE 25 MG TAB PO SCH ×2 (09:33→21:44)
[2019-09-09] MEDS: PANTOPRAZOLE 40 MG/10 ML VIAL INJ IV SCH (09:33)
--- NOTE | 2019-09-09 09:41 | NUR ---
PT. COMPLETELY OFF SEDATION, FENTANYL GTT. OFF 904. PROPOFOL GTT. HAS BEEN OFF SINCE EARLY THIS AM. PT. AWAKE, EYES OPEN, TRACKING. LOOKS AT YOU WHEN NAME CALLED. WILFREDO. HAND MITTENS IN PLACE TO PREVENT PULLING OF TUBES, PT. CONTINUOUSLY REACHING ARMS UP TOWARDS ET. RT PLACED PT. ON CPAP TRIAL ORDERED.
--- NOTE | 2019-09-09 10:25 | NUR ---
PT. ANXIOUS AT TIMES. RR INCREASED TO MID 20'S. PT. HAS INCREASED WORK OF BREATHING ON CPAP TRIAL. CPAP TRIAL STOPPED AND RT PLACED PT. BACK ON PREVIOUS VENT SETTINGS. RESTARTED FENTANYL GTT. AT 25 MCG. AND PROPOFOL GTT. AT 5 MCG.
[2019-09-09] MEDS: AMIODARONE 450mg/250ml AE 250 ML IV SCH (10:36)
[2019-09-09] MEDS: PROPOFOL 100 ML IV SCH ×3 (10:36→21:17)
--- NOTE | 2019-09-09 13:15 | NUR ---
TEMP 100.4 RECTALLY. PLACED ICE PACKS WILFREDO. AXILLA. NO COVERS ON PT. MONITORING TEMP.
--- NOTE | 2019-09-09 13:45 | NUR ---
CHANGED PICC LINE DSG. LIZ DOUBLE LUMEN USING STERILE TECHNIQUE.
--- NOTE | 2019-09-09 15:30 | NUR ---
TEMP DECREASED TO 99.7 RECTALLY. MONITORING TEMP.
[2019-09-09] MEDS: fentaNYL Drip 2500mCg/250mlNS 250 ML IV SCH ×2 (15:59→21:41)
[2019-09-09] MEDS ORDERED: TPN*HIGH CONC* PER PHARMACY IV NR ×10 (20:00)
--- NOTE | 2019-09-09 21:28 | NUR ---
LEVOPHED DRIP INCREASED TO 8 MCG/MIN, SBP 80'S, MAP LOW 60'S
[2019-09-10] VITALS (99 sets, daily range): BP systolic 68–134; BP diastolic 35–106
[2019-09-10] MEDS: AMIODARONE 450mg/250ml AE 250 ML IV SCH ×2 (01:23→17:01)
[2019-09-10] MEDS: NOREPINEPHRINE 8 MG/250ML KIT 250 ML IV SCH ×2 (01:24→14:19)
--- NOTE | 2019-09-10 02:00 | NUR ---
Patient bathe/linen change Patient given partial bath with CHG. Skin integrity assessed for any changes. Linens and gown changed. Patient repositioned for comfort.
[2019-09-10] MEDS: ACCU-CHEK COMFORT CURVE STRIP VI SCH ×3 (05:24→17:40)
[2019-09-10] MEDS: InsuLIN REG 1unit/0.01ml Soln (100units/ml) SC SCH ×3 (05:26→17:41)
[2019-09-10] MEDS: PIPERACILLIN-TAZOB 3.375GM 100 ML IV SCH ×3 (05:33→17:40)
[2019-09-10 05:40] LABS: Potassium 4.6 mmol/L (3.5-5.1)
[2019-09-10 05:53] LABS: Albumin 1.8 g/dL (3.4-5.0); BUN/Creatinine Ratio 36.4; Bilirubin, Total 0.4 mg/dL (0.2-1.0); Calcium 7.4 mg/dL (8.5-10.1); Magnesium 2.7 mg/dL (1.6-2.6); Pre Albumin 15.5 mg/dL (20.0-40.0); Total Protein 5.4 g/dL (6.4-8.2)
--- NOTE | 2019-09-10 07:20 | NUR ---
ASSESS- PT. LYING IN BED ON VENT SIZE # 8.0 ET, 26 AT THE LIP, AC-14, TV-550, PEEP-5, FIO2-30%. LUNGS CLEAR WILFREDO. INSPIRATORY AND EXPIRATORY. PT. HAS GAG/COUGH REFLEX. PUPILS 3 AND BRISK WILFREDO. ON FENTANYL GTT. AT 100 MCG. AND PROPOFOL GTT. AT 30 MCG. RESPONDS TO PAINFUL/TACTILE STIMULI. NO MOVEMENT OF EXTREMITIES SEEN. PICC RT. UPPER ARM DOUBLE LUMEN INTACT. TPN AT 85 CC/HR. LEVOPHED GTT. AT 10 MCG. A-LINE LT. RADIAL INTACT WITH DSG. D/I. AMIODARONE GTT. AT 0.5 MG./MIN. ABD. SOFT, LG. BOWEL SOUNDS ABSENT ALL FOUR QUADRANTS. NGT RT. NARE TO LIS WITH BILE DRAINAGE. MID-LINE ABD. INCISION WITH DSG. D/I. BRADY TO ABD. BULB SUCTION WITH SEROSANGINOUS DRAINAGE. F/C TO GRAVITY WITH CLEAR YELLOW URINE. RADIAL PULSES STRONG, PALPABLE WILFREDO. DORSALIS PEDAL PULSES STRONG, PALPABLE WILFREDO. SCD'S WILFREDO. LE. RECTAL PROBE IN PLACE. NO MOVEMENT OF EXTREMITIES SEEN AT THIS TIME.
--- NOTE | 2019-09-10 08:00 | NUR ---
SBP ONE TEENS TO 120'S. TITRATING LEVOPHED GTT. DOWN TO KEEP SBP >90. MONITORING BP.
[2019-09-10] MEDS: METOPROLOL TARTRATE 25 MG TAB PO SCH ×2 (09:33→20:32)
[2019-09-10] MEDS: SODIUM CHLOR 0.9% PF (SALINE LOCK) 10ML VIAL/SYR IV SCH ×2 (09:33→20:32)
[2019-09-10] MEDS: PANTOPRAZOLE 40 MG/10 ML VIAL INJ IV SCH (09:33)
--- NOTE | 2019-09-10 10:10 | NUR ---
DR. HUYNH Provider/Hospitalist at bedside. GAVE UPDATE ON PT. NEW ORDERS RECEIVED.
--- NOTE | 2019-09-10 11:54 | NUR ---
Nutrition Followup Notes Wt: 111.0 kg Pt sedated, intubated, with TPN running at 85 ml/hr providing 1910 kcal, 180g protein, and 1190 NPCs. Current PN support provides 105-135% of energy needs and 167-209% of protein needs. 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 Pt est protein requirements are 60-76 g/day. Suggest protein be reduced to fall within the recommended parameters. Spoke to pharmacy to recommend reducing protein to meet calculated needs based on pt CKF medical condition. Pharmacy noted they will gradually reduce protein. Will continue to monitor PO status, skin status, pertinent labs and weight trends. Will f/u in 2-3 days. Est energy needs 5180-7471 kcal (14-18 kcal/kg BW 100.7kg), Est protein 60-75g (0.6-0.75g/kg BW 100.7kg). Will reassess prn. LABS: BUN 60H, Cr 1.65 H, GFR 42 (Stg 3), GLUC 150H, Alb 1.8L, Ca 7.4L GI: Pt has no BM reported with gastric drainage of 250 ml 09/08 per RN doc. BS: 13 mod risk Refer to wound assessment report for full details. PES: 1) Obesity r/t caloric intake in excess of needs aeb pt BMI is 31.0kg/m2 which is obese 2) Altered nutrition related labs r/t current medical condition aeb elevated RFTs, hypoalb 3) Inadequate oral intake r/t current medical condition aeb pt with NPO diet order Comments 1) Continue PN support to meet > 75% of needs. 2) Advance diet as medically feasible. 3) Continue current plan of care. F/u high 2-3 days
[2019-09-10] MEDS: PROPOFOL 100 ML IV SCH ×3 (12:01→21:00)
[2019-09-10] MEDS: metroNIDAZOLE 500MG/100ML 100 ML IV SCH ×3 (12:16→20:32)
--- NOTE | 2019-09-10 15:00 | NUR ---
PT. SEDATED ON VENT WITH EYES CLOSED. NO SIGNS OF DISTRESS OR DISCOMFORT.
--- NOTE | 2019-09-10 19:45 | NUR ---
Opening Shift Note: Patient is intubated/sedated. ET size 8.0/24 @ lip. Settings: AC rate 14; vT 550; PEEP 5; FiO2 30%. Neuro: pupils are 3 mm in size/sluggish but reactive to light; flaccid extremities; + cough/gag. Cardiac: SR 80s-90s 1st degree AVB; SBPs 110s; pulses all palpable. Resp: anterior lung sounds clear/dim in bases; ET/oral secretions are thick/clear. GI: right nare NGT to LIS: dark green output; absent bowel sounds; patient is s/p ex. lap/transverse colon resection with Dr. Hernandez on 09/01/19. Urinary: bowman inserted on 09/01/19 for strict I/O. 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 IVs: right forearm 20g IID; left forearm 20 g: NS TKO/ABX; left wrist ART line; RUE double lumen PICC running: Fentanyl @ 100; Propofol @ 30; TPN @ 72; Levo @ 7; Amiodarone @ 0.5. Will continue to round/reposition/perform oral care prn.
[2019-09-10] MEDS: TPN*HIGH CONC* PER PHARMACY IV NR ×10 (20:00)
[2019-09-10] MEDS: fentaNYL Drip 2500mCg/250mlNS 250 ML IV SCH (21:12)
[2019-09-11] VITALS (99 sets, daily range): BP systolic 64–158; BP diastolic 33–129
[2019-09-11] MEDS: PIPERACILLIN-TAZOB 3.375GM 100 ML IV SCH ×4 (00:10→18:22)
[2019-09-11] MEDS: ACCU-CHEK COMFORT CURVE STRIP VI SCH ×4 (00:11→18:22)
[2019-09-11] MEDS: PROPOFOL 100 ML IV SCH (02:30)
--- NOTE | 2019-09-11 04:00 | NUR ---
Patient bathe/linen change Patient given complete CHG bath. Skin integrity assessed for any changes. Linens and gown changed. Patient repositioned for comfort.
[2019-09-11 04:33] LABS: Basophils # (auto) 0.1 10 ^3/uL (0-0.2); Basophils % (auto) 1.9 % (0.0-2.0); Eosinophils # (auto) 0.1 10 ^3/uL (0-0.8); Eosinophils % (auto) 2.6 % (0.0-7.0); Hematocrit 24.8 % (41.0-53.0); Hemoglobin 8.3 g/dL (13.5-17.5); Lymphocytes # (auto) 1.2 10 ^3/uL (0.4-5.4); Lymphocytes % (auto) 23.1 % (10.0-50.0); Mean Corpuscular Hemoglobin 30.8 pg (28.0-32.0); Mean Corpuscular Hgb Conc. 33.5 g/dL (32.0-36.0); Mean Corpuscular Volume 91.8 fL (80.0-100.0); Monocytes # (auto) 0.7 10 ^3/uL (0-1.3); Monocytes % (auto) 12.8 % (0.0-12.0); Neutrophils % (auto) 59.6 % (37.0-80.0); Platelet Count (auto) 271 10^3/uL (140-450); Red Cell Distribution Width 13.8 % (11.8-14.3); White Blood Cell 5.1 10^3/uL (4.4-10.8)
[2019-09-11] MEDS: metroNIDAZOLE 500MG/100ML 100 ML IV SCH ×3 (04:40→21:56)
[2019-09-11] MEDS: InsuLIN REG 1unit/0.01ml Soln (100units/ml) SC SCH ×4 (04:40→18:22)
[2019-09-11 04:53] LABS: Albumin 1.8 g/dL (3.4-5.0); Calcium 7.5 mg/dL (8.5-10.1); Potassium 4.6 mmol/L (3.5-5.1)
[2019-09-11 04:58] LABS: BUN/Creatinine Ratio 37.9; Bilirubin, Total 0.4 mg/dL (0.2-1.0); Total Protein 5.5 g/dL (6.4-8.2)
[2019-09-11 06:09] LABS: Magnesium 2.8 mg/dL (1.6-2.6); Phosphorus 3.7 mg/dL (2.5-4.90)
[2019-09-11] MEDS: AMIODARONE 450mg/250ml AE 250 ML IV SCH ×2 (06:59→21:56)
[2019-09-11] MEDS: NOREPINEPHRINE 8 MG/250ML KIT 250 ML IV SCH (06:59)
[2019-09-11] MEDS ORDERED: VANCOMYCIN PER PHARMACY 0 MG IV SCH (10:30)
--- NOTE | 2019-09-11 10:36 | NUR ---
Dr. Singleton at bedside.
[2019-09-11] MEDS: PANTOPRAZOLE 40 MG/10 ML VIAL INJ IV SCH (10:37)
[2019-09-11] MEDS: METOPROLOL TARTRATE 25 MG TAB PO SCH ×2 (10:37→20:27)
[2019-09-11] MEDS: SODIUM CHLOR 0.9% PF (SALINE LOCK) 10ML VIAL/SYR IV SCH ×2 (10:37→20:27)
--- NOTE | 2019-09-11 14:04 | NUR ---
Dr. Gomes updated via telephone, orders received to extubate the patient. RT paged, awaiting orders.
--- NOTE | 2019-09-11 14:10 | NUR ---
RT at bedside.
--- NOTE | 2019-09-11 14:14 | NUR ---
PT EXTUBATED AT THIS TIME PER 'S ORDERS. PT PLACED ON COOL AERO. 35% FIO2. SPO2 100% HR 72 RR 18 B/S COARSE. NO DISTRESS NOTED. WEANING PARAMETERS FOLLOWS. NIF -26 VC 1035 RR 20 VT 620 RSBI 32 LEAK 200.
[2019-09-11] MEDS: VANCOMYCIN 1GM/250ML 250 ML IV SCH (15:04)
[2019-09-11] MEDS ORDERED: GASTROGRAFIN 120 ML SOL ONE (15:55)
[2019-09-11] MEDS ORDERED: POTASSIUM ACETATE IV NR ×10 (20:00)
[2019-09-11] MEDS ORDERED: POTASSIUM PHOSPHATE IV NR ×10 (20:00)
[2019-09-11] MEDS ORDERED: SODIUM CHLORIDE IV NR ×10 (20:00)
[2019-09-11] MEDS ORDERED: [UNRECOGNIZED DRUG - OTHER] IV NR ×10 (20:00)
--- NOTE | 2019-09-11 20:00 | NUR ---
Opening Shift Note: Patient extubated today at 1414. Neuro: pupils are 3 mm in size/sluggish but reactive to light; flaccid extremities; + cough/gag; nonverbal/confused. Cardiac: SR 60s-70s BBB; SBPs 110s-130s; pulses all palpable. Resp: anterior lung sounds coarse throughout; oral secretions are thick/clear. GI: right nare NGT to LIS: dark green output; absent bowel sounds; patient is s/p ex. lap/transverse colon resection with Dr. Hernandez on 09/01/19. Urinary: bowman inserted on 09/01/19 for strict I/O. 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 IVs: right forearm 20g IID; left forearm 20 g: NS TKO/ABX; left wrist ART line; RUE double lumen PICC running:TPN @ 62; Levo @ 5; Amiodarone @ 0.5. Will continue to round/reposition/perform oral care prn.
[2019-09-11] MEDS: TPN*HIGH CONC* PER PHARMACY IV NR ×10 (20:23)
[2019-09-12] VITALS (53 sets, daily range): BP systolic 70–150; BP diastolic 43–109
[2019-09-12] MEDS: PIPERACILLIN-TAZOB 3.375GM 100 ML IV SCH ×3 (01:00→11:50)
[2019-09-12] MEDS: MORPHINE SULF INJ 2 MG/ML SYRINGE 1ML IV PRN ×2 (01:00→06:00)
[2019-09-12] MEDS: NOREPINEPHRINE 8 MG/250ML KIT 250 ML IV SCH (03:15)
[2019-09-12 04:41] LABS: Basophils # (auto) 0.1 10 ^3/uL (0-0.2); Eosinophils # (auto) 0 10 ^3/uL (0-0.8); Hematocrit 23.4 % (41.0-53.0); Hemoglobin 7.9 g/dL (13.5-17.5); Mean Corpuscular Hgb Conc. 33.9 g/dL (32.0-36.0); Monocytes # (auto) 0.5 10 ^3/uL (0-1.3); Neutrophils # (auto) 2.7 10 ^3/uL (1.6-8.6); Platelet Count (auto) 293 10^3/uL (140-450)
[2019-09-12 04:43] LABS: Basophils % (auto) 1.5 % (0.0-2.0); Lymphocytes % (auto) 23.5 % (10.0-50.0); Mean Corpuscular Hemoglobin 30.8 pg (28.0-32.0); Mean Corpuscular Volume 90.9 fL (80.0-100.0); Monocytes % (auto) 12.1 % (0.0-12.0); Neutrophils % (auto) 61.9 % (37.0-80.0); Red Blood Cells 2.57 10^6/uL (4.5-5.90); Red Cell Distribution Width 14.1 % (11.8-14.3); White Blood Cell 4.4 10^3/uL (4.4-10.8)
--- NOTE | 2019-09-12 05:00 | NUR ---
Patient bathe/linen change Patient given complete CHG bath. Skin integrity assessed for any changes. Linens and gown changed. Patient repositioned for comfort.
[2019-09-12 05:07] LABS: Albumin 1.7 g/dL (3.4-5.0); Calcium 7.5 mg/dL (8.5-10.1); Magnesium 2.6 mg/dL (1.6-2.6); Potassium 4.2 mmol/L (3.5-5.1)
[2019-09-12 05:11] LABS: BUN/Creatinine Ratio 33.3; Bilirubin, Total 0.4 mg/dL (0.2-1.0); Phosphorus 2.8 mg/dL (2.5-4.90); Total Protein 5.6 g/dL (6.4-8.2)
[2019-09-12] MEDS: metroNIDAZOLE 500MG/100ML 100 ML IV SCH (05:30)
--- NOTE | 2019-09-12 05:30 | NUR ---
ART line removal in left wrist: patient removed even with mittens on both hands. Dressing applied.
[2019-09-12] MEDS: ACCU-CHEK COMFORT CURVE STRIP VI SCH ×4 (06:00→17:26)
[2019-09-12] MEDS: InsuLIN REG 1unit/0.01ml Soln (100units/ml) SC SCH ×4 (06:00→17:26)
[2019-09-12] MEDS: PANTOPRAZOLE 40 MG/10 ML VIAL INJ IV SCH (09:46)
[2019-09-12] MEDS: VANCOMYCIN 1GM/250ML 250 ML IV SCH (09:46)
[2019-09-12] MEDS: SODIUM CHLOR 0.9% PF (SALINE LOCK) 10ML VIAL/SYR IV SCH ×2 (09:46→22:00)
[2019-09-12] MEDS: METOPROLOL TARTRATE 25 MG TAB PO SCH ×2 (09:49→22:00)
--- NOTE | 2019-09-12 10:15 | NUR ---
Per Dr. Shell, may downgrade patient to telemetry.
--- NOTE | 2019-09-12 10:15 | NUR ---
PT at bedside.
--- NOTE | 2019-09-12 10:58 | NUR ---
Dr. Corado updated orders received.
[2019-09-12] MEDS ORDERED: AMIODARONE HCL 200 MG TAB PO ONE (11:00)
--- NOTE | 2019-09-12 11:18 | NUR ---
Dr. Bee at bedside.
--- NOTE | 2019-09-12 11:22 | NUR ---
Nutrition Followup Notes Wt: 112.2 kg Pt sedated, intubated, with TPN running at 62 ml/hr providing 1610 kcal, 165g protein, and 950 NPCs. Current PN support provides 89-114% of energy needs and 220-275% of protein needs. Pt with TPN order at 67 ml/hr to provide 1910 kcal, 105g protein. Will continue to monitor PO status, skin status, pertinent labs and weight trends. Will f/u in 2-3 days. Est energy needs 0718-2521 kcal (14-18 kcal/kg BW 100.7kg), Est protein 60-75g (0.6-0.75g/kg BW 100.7kg). Will reassess prn. LABS: BUN 52H, Cr 1.56 H, GFR 45 (Stg 3), GLUC 156H, Alb 1.7L, Ca 7.5L GI: Pt has no BM reported with gastric drainage of 160 ml 09/08 per RN doc. BS: 13 mod risk Refer to wound assessment report for full details. PES: 1) Obesity r/t caloric intake in excess of needs aeb pt BMI is 31.0kg/m2 which is obese 2) Altered nutrition related labs r/t current medical condition aeb elevated RFTs, hypoalb 3) Inadequate oral intake r/t current medical condition aeb pt with NPO diet order Comments 1) Continue PN support to meet > 75% of needs. 2) Advance diet as medically feasible. 3) Continue current plan of care. F/u high 2-3 days
--- NOTE | 2019-09-12 11:27 | NUR ---
Dr. Bee updated the patient's family member via telephone.
--- NOTE | 2019-09-12 15:55 | NUR ---
Dr. Gomes at bedside.
--- NOTE | 2019-09-12 16:00 | NUR ---
SBAR report given to BRAD Hendricks.
--- NOTE | 2019-09-12 16:03 | NUR ---
Patient's niece Marcela Baez updated via telephone. All questions and concerns addressed. [phone]
--- NOTE | 2019-09-12 16:19 | NUR ---
D/C Planning Regarding social service consult for [facility]. Faxed clinical information to Karlene. Khanh Jha with [facility] pending acceptance.
--- NOTE | 2019-09-12 16:25 | NUR ---
D/C Planning Received a follow up called from [facility] advising me they can accept patient and they will assign room and following doctor upon discharge day.
--- NOTE | 2019-09-12 17:30 | NUR ---
CAME ON BED FROM ICU, RECEIVED PATIENT ALERT AND ORIENTED AND NONE VERBAL, CONFUSED, NOT IN DISTRESS, DIMINISHED LS IN BILATERAL LUNG LOBES, RR=16 SAT=94%, DEEP BREATHING AND COUGHING WAS ENCOURAGED, NO S/S OF SOB AND CP AT THIS MOMENT SR R=97 ON TELE MONITOR, ABDOMEN SOFT AND ROUND WITH ACTIVE BS, LAST BM UNKNOWN REPORTED, MIDDLE ABDOMINAL SURGICAL SITE COVERED WITH DRY AND INTACT DRESSING, MID ABDOMINAL BRADY DRAIN BAG IN PLACE AND PATENT, DRAINING SEROSANGUINEOUS COLORED DRAIN, MCCABE CATH IN PLACE AND PATENT, DRAINING MINIMAL CLEAR YELLOW URINE, SACRUM PRESSURE SKIN TEAR STAGE I COVERED WITH DRY AND INTACT OPTIFOAM DRESSING, GENERAL SKIN INTACT WITH SMALL BRUISES WARM TO TOUCH, RADIAL AND PEDAL PULSES PALPABLE, CAP REFILL <3 SECONDS, HEAD OF BED ELEVATED, BED ON LOW POSITION, RAILS UP X2, CALL LIGHT ON REACH, VS T=98.4 RR=16 SAT=94% P=86 JT=856/73, WILL CONTINUE MONITORING.
--- NOTE | 2019-09-12 19:41 | NUR ---
REPORT WAS GIVEN TO THE ANALYTICAL LAB ANALYST RN.
[2019-09-12] MEDS ORDERED: TPN*HIGH CONC* PER PHARMACY IV NR ×11 (20:00)
--- NOTE | 2019-09-12 21:45 | NUR ---
AFTER REVIEWING PT'S CHART AMIODARONE PO AND IV ORDER NOTED. CLARIFY WITH FAITH TOLBERT NP. GIVE AN ORDER TO DISCONTINUE AMIODARONE IV AND KEEP AMIODARONE PO.
[2019-09-12] MEDS: AMIODARONE HCL 200 MG TAB PO SCH (22:00)
[2019-09-13] MEDS: ACCU-CHEK COMFORT CURVE STRIP VI SCH ×5 (01:50→23:33)
--- NOTE | 2019-09-13 01:50 | NUR ---
CHILDREN COUNSELOR CLARIFY WITH ALBIN TOLBERT NP. OK TO INSERT NGT FOR MEDS ADMINISTRATION.
--- NOTE | 2019-09-13 02:05 | NUR ---
ATTEMPTED TO REINSERT NGT, UNSUCCESSFUL PT CANNOT TOLERATE PROCEDURE, CHARGE NURSE MADE AWARE.
--- NOTE | 2019-09-13 02:15 | NUR ---
PO MEDS ON HOLD, PT DOES NOT TOLERATE NGT PLACEMENT, FAITH TOLBERT COOK PIE, CHARGE NURSE AND HOUSE SUP AWARE.
[2019-09-13 05:49] VITALS: BP 146/73
[2019-09-13] MEDS: InsuLIN REG 1unit/0.01ml Soln (100units/ml) SC SCH ×5 (06:17→23:34)
[2019-09-13 07:36] LABS: Magnesium 2.4 mg/dL (1.6-2.6)
[2019-09-13 07:39] LABS: Bilirubin, Total 0.3 mg/dL (0.2-1.0); Phosphorus 3.1 mg/dL (2.5-4.90)
[2019-09-13 08:00] VITALS: BP 157/62
--- NOTE | 2019-09-13 08:00 | NUR ---
RECEIVED PATIENT ALERT AND ORIENTED AND NONE VERBAL, CONFUSED, NOT IN DISTRESS, DIMINISHED LS IN BILATERAL LUNG LOBES, RR=16 SAT=94%, DEEP BREATHING AND COUGHING WAS ENCOURAGED, NO S/S OF SOB AND CP AT THIS MOMENT SR R=83 ON TELE MONITOR, ABDOMEN SOFT AND ROUND WITH ACTIVE BS, LAST BM UNKNOWN REPORTED, MIDDLE ABDOMINAL SURGICAL SITE COVERED WITH DRY AND INTACT DRESSING, MID ABDOMINAL BRADY DRAIN BAG IN PLACE AND PATENT, DRAINING SEROSANGUINEOUS COLORED DRAIN, MCCABE CATH IN PLACE AND PATENT, DRAINING CLEAR YELLOW URINE, SACRUM COVERED WITH DRY AND INTACT OPTIFOAM DRESSING, GENERAL SKIN INTACT WITH SMALL BRUISES WARM TO TOUCH, RADIAL AND PEDAL PULSES PALPABLE, CAP REFILL <3 SECONDS, HEAD OF BED ELEVATED, BED ON LOW POSITION, RAILS UP X2, CALL LIGHT ON REACH, PENDING SS AND SMALL BOWEL SERIES, WILL CONTINUE MONITORING.
--- NOTE | 2019-09-13 08:30 | NUR ---
CHARLA PICKERING WAS CONTACTED FOR FOLLOW UP AND TO COMMUNICATE WITH SUSHMA GUERRERO ON [phone] REQUESTED, CHARLA PICKERING VERBALIZED UNDERSTANDING.
--- NOTE | 2019-09-13 09:00 | NUR ---
DR. SALAZAR WAS PAGED FOR NGT UPDATES AND FOLLOW UP, WAITING FOR CALL BACK, WILL CONTINUE MONITORING.
[2019-09-13] MEDS: AMIODARONE HCL 200 MG TAB PO SCH ×2 (10:00→22:00)
[2019-09-13] MEDS: METOPROLOL TARTRATE 25 MG TAB PO SCH ×2 (10:00→22:00)
--- NOTE | 2019-09-13 10:30 | NUR ---
DR. SALAZAR WAS CONTACTED FOR FOLLOW UP AND TO COMMUNICATE WITH SUSHMA GUERRERO ON [phone] REQUESTED, DR. SALAZAR VERBALIZED UNDERSTANDING, WILL CONTINUE MONITORING.
--- NOTE | 2019-09-13 11:22 | NUR ---
KEEP NPO AM PO MEDICATION HOD, INCONTINENT, MEDIUM SOFT BLOCK COLORED BM NOTED, DR. 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
--- NOTE | 2019-09-13 11:33 | NUR ---
DR. HERRON WAS PAGED FOR NGT ORDER CLARIFICATION AND UPDATES, WAITING FOR CALL BACK, WILL CONTINUE MONITORING.
--- NOTE | 2019-09-13 11:53 | NUR ---
D/C Planning Informed Dr. Bee patient blanca Medrano would like to speak to him in regards of patient discharge plan. Placed a follow up called to patient blanca Medrano at 11:40am advising her Dr. Bee would like to speak to her regarding discharge plans. Dr. Bee answer patient blanca Medrano concerns and will re-evaluate patient on Wednesday.
[2019-09-13 12:00] VITALS: BP 157/77
[2019-09-13] MEDS: PANTOPRAZOLE 40 MG/10 ML VIAL INJ IV SCH (12:45)
[2019-09-13] MEDS: SODIUM CHLOR 0.9% PF (SALINE LOCK) 10ML VIAL/SYR IV SCH ×2 (12:45→22:32)
[2019-09-13] MEDS: MORPHINE SULF INJ 2 MG/ML SYRINGE 1ML IV PRN (12:46)
[2019-09-13] MEDS: METOPROLOL TARTRATE 1MG/1ML-5ML VIAL IV PRN (12:48)
[2019-09-13] MEDS: ONDANSETRON HCL 4 MG/2 ML VIAL IV PRN (12:48)
--- NOTE | 2019-09-13 13:42 | NUR ---
WENT ON BED TO RADIOLOGY FOR HEAD CT, CAME BACK AND RESTING AT THIS MOMENT, PENDING SWALLOW EVALUATION, KEEP NPO AND NO NGT NEEDED REPORTED BY DR. HERRON, WILL CONTINUE MONITORING.
--- NOTE | 2019-09-13 14:00 | NUR ---
URINE SAMPLE FOR U/A AND U/C SENT TO THE LAB ORDERED.
--- NOTE | 2019-09-13 16:58 | NUR ---
WOUND CARE NOTE: Wound care in to see patient for reevaluation of wounds and skin integrity monitoring. Patient has been extubated and now in central MS/telemetry unit. Patient is resting in bed in Rm. 204. Patient is awake and non-verbal. Patient appears to be in no pain using Russo Bee Faces Pain Scale. His Lito score is 13. Skin assessment done with the assistance of patient's nurse, BRAD Hendricks. Patient's device associated pressure injury to upper lip is now with dry intact scab measuring 0.8x2cm, area is clean and dry, left open to air. His Rt lateral buttock also noted with 2.5x0.5cm dry intact scab, hamida wound is pink, area is clean and dry, left open to air. Photograph of mentioned wounds are taken for reference. Patient is incontinent and passed moderate amount of soft stool. Assisted RN Ruthie to clean patient. Patient's sacral, buttock has intact skin with blanchable mild redness. Applied Z Guard cream as preventative. Applied new draw sheet and care pad. Abdominal incision has C/D/I dressing. Patient tolerated skin examination well. Repositioned for comfort facing his Lt side, redistributed pressure points with pillows. RN Ruthie at bedside. RECOMMENDATION: Continuation of all wound care orders prescribed by MD, continue with skin/wound plan of care, continue monitoring by wound care while patient is hospitalized. Addendum: 09/13/19 at 1843 by Belen Espinosa RN Amended: Links added.
[2019-09-13 17:00] VITALS: BP 103/51
--- NOTE | 2019-09-13 18:00 | NUR ---
LARGE SOFT LIGHT BROWN BM NOTED, PARTIAL BED BATH PROVIDED, KEEP CLEAN AND DRY, Z GUARD WAS APPLIED WELL, WILL CONTINUE MONITORING.
--- NOTE | 2019-09-13 19:43 | NUR ---
REPORT WAS GIVEN TO THE SENIOR INFORMATION SYSTEMS ARCHITECT RN.
[2019-09-13] MEDS ORDERED: TPN*HIGH CONC* PER PHARMACY IV NR ×11 (20:00)
[2019-09-13 21:52] VITALS: BP 102/52
--- NOTE | 2019-09-13 22:35 | NUR ---
PO Meds Held due to pt being NPO for high risk of aspiration. Swallow eval still pending.
[2019-09-13 22:59] LABS: Urine Bacteria FEW /hpf (None Seen); Urine Blood 3+ /uL (Negative); Urine Budding Yeast MODERATE /hpf (None Seen); Urine Mucus FEW (None Seen); Urine Specific Gravity 1.016 (1.001-1.035); Urine WBC 7 /hpf (0 - 3)
[2019-09-14 04:54] VITALS: BP 106/64
[2019-09-14 05:54] LABS: Albumin 1.9 g/dL (3.4-5.0); Calcium 7.7 mg/dL (8.5-10.1); Magnesium 2.4 mg/dL (1.6-2.6); Potassium 4.2 mmol/L (3.5-5.1)
[2019-09-14 05:59] LABS: Bilirubin, Total 0.3 mg/dL (0.2-1.0); Total Protein 5.8 g/dL (6.4-8.2)
[2019-09-14] MEDS: InsuLIN REG 1unit/0.01ml Soln (100units/ml) SC SCH ×3 (06:03→18:00)
[2019-09-14] MEDS: ACCU-CHEK COMFORT CURVE STRIP VI SCH ×3 (06:04→18:06)
[2019-09-14 08:00] VITALS: BP 119/65
[2019-09-14] MEDS: AMIODARONE HCL 200 MG TAB PO SCH ×2 (10:00→21:44)
[2019-09-14] MEDS: METOPROLOL TARTRATE 25 MG TAB PO SCH ×2 (10:00→21:44)
[2019-09-14] MEDS: SODIUM CHLOR 0.9% PF (SALINE LOCK) 10ML VIAL/SYR IV SCH ×2 (10:29→21:42)
[2019-09-14] MEDS: PANTOPRAZOLE 40 MG/10 ML VIAL INJ IV SCH (10:29)
--- NOTE | 2019-09-14 11:45 | NUR ---
SWALLOW EVALUATED. PATIENT IS ALOC BUT ABLE T FOLLOW ONE STEP COMMANDS. PATIENT HAS NATURAL TEETH. PATIENT WAS COUGHING PRIOR TO EVALUATION AND PATIENT COUGHED ON THIN LIQUID TRIAL. PATIENT ABLE TO TOLERATE PUREE DIET TEXTURE WITH NECTAR THICKENED LIQUIDS WITH NO OVERT SIGNS OR SYMPTOMS OF ASPIRATION. NURSING NOTIFIED.
[2019-09-14 12:00] VITALS: BP 119/56
[2019-09-14] MEDS ORDERED: cefTRIAXone 1GM/50ML D5W 50 ML IV ONE (13:15)
--- NOTE | 2019-09-14 16:01 | NUR ---
Nutrition Followup Notes Wt: 110.0 kg Pt is extubated, scheduled for a swallow eval, with TPN running at 68 ml/hr providing 1910 kcal, 105g protein, and 1490 NPCs. Current PN support provides 105-135% of energy needs and 140-175% of protein needs. Will continue to monitor PO status, skin status, pertinent labs and weight trends. Will f/u in 2-3 days. Est energy needs 3766-7002 kcal (14-18 kcal/kg BW 100.7kg), Est protein 60-75g (0.6-0.75g/kg BW 100.7kg). Will reassess prn. LABS: BUN 48H, Cr 1.55 H, GFR 46 (Stg 3), GLUC 136H, Alb 1.9L GI: Pt is incontinent per RN doc. BS: 15 mod risk Refer to wound assessment report for full details. PES: 1) Obesity r/t caloric intake in excess of needs aeb pt BMI is 31.0kg/m2 which is obese 2) Altered nutrition related labs r/t current medical condition aeb elevated RFTs, hypoalb 3) Inadequate oral intake r/t current medical condition aeb pt with NPO diet order Comments 1) Continue PN support to meet > 75% of needs. 2) Advance diet as medically feasible. 3) Continue current plan of care. F/u high 2-3 days
[2019-09-14 17:00] VITALS: BP 109/61
[2019-09-14] MEDS ORDERED: TPN*HIGH CONC* PER PHARMACY IV NR ×9 (20:00)
[2019-09-14] MEDS: FLORASTOR (S. BOULARDII) 250 MG CAP PO SCH (21:44)
--- NOTE | 2019-09-14 21:45 | NUR ---
Patient is refusing all PO intake including medications. Explained the importance of taking ordered medications as well as proper nutrition. Patient continues to refuse.
[2019-09-14 22:00] VITALS: BP 118/70
[2019-09-15] MEDS: ACCU-CHEK COMFORT CURVE STRIP VI SCH ×4 (00:32→18:00)
[2019-09-15 05:00] VITALS: BP 130/73
[2019-09-15 05:36] LABS: Basophils # (auto) 0.1 10 ^3/uL (0-0.2); Basophils % (auto) 1.4 % (0.0-2.0); Eosinophils # (auto) 0.1 10 ^3/uL (0-0.8); Eosinophils % (auto) 1.2 % (0.0-7.0); Hematocrit 28.5 % (41.0-53.0); Hemoglobin 9.4 g/dL (13.5-17.5); Lymphocytes % (auto) 16.9 % (10.0-50.0); Mean Corpuscular Hemoglobin 30.7 pg (28.0-32.0); Mean Corpuscular Hgb Conc. 32.9 g/dL (32.0-36.0); Mean Corpuscular Volume 93.2 fL (80.0-100.0); Monocytes # (auto) 0.3 10 ^3/uL (0-1.3); Monocytes % (auto) 5.4 % (0.0-12.0); Neutrophils # (auto) 4.3 10 ^3/uL (1.6-8.6); Neutrophils % (auto) 75.1 % (37.0-80.0); Nucleated Red Blood Cells % 0.1 %; Platelet Count (auto) 390 10^3/uL (140-450); Red Blood Cells 3.06 10^6/uL (4.5-5.90); Red Cell Distribution Width 14.2 % (11.8-14.3); White Blood Cell 5.8 10^3/uL (4.4-10.8)
[2019-09-15 06:03] LABS: Potassium 3.5 mmol/L (3.5-5.1)
[2019-09-15 06:10] LABS: Albumin 2.2 g/dL (3.4-5.0); BUN/Creatinine Ratio 32.4; Bilirubin, Total 0.3 mg/dL (0.2-1.0); Calcium 7.9 mg/dL (8.5-10.1); Magnesium 2.5 mg/dL (1.6-2.6); Phosphorus 2.8 mg/dL (2.5-4.90); Total Protein 6.2 g/dL (6.4-8.2)
[2019-09-15] MEDS: InsuLIN REG 1unit/0.01ml Soln (100units/ml) SC SCH ×4 (06:20→18:00)
--- NOTE | 2019-09-15 07:10 | NUR ---
25ml serosanguineous fluid removed from alfredo. Alfredo bulb redepressed.
[2019-09-15 08:00] VITALS: BP 131/58
--- NOTE | 2019-09-15 09:30 | NUR ---
Physical Therapy at bedside.
--- NOTE | 2019-09-15 09:38 | NUR ---
Dr. Cruz at bedside.
[2019-09-15] MEDS: FLORASTOR (S. BOULARDII) 250 MG CAP PO SCH ×2 (10:00→22:00)
[2019-09-15] MEDS: SODIUM CHLOR 0.9% PF (SALINE LOCK) 10ML VIAL/SYR IV SCH ×2 (10:00→22:00)
[2019-09-15] MEDS: PANTOPRAZOLE 40 MG/10 ML VIAL INJ IV SCH (10:32)
[2019-09-15] MEDS: cefTRIAXone 1GM/50ML D5W 50 ML IV SCH (10:32)
[2019-09-15] MEDS: AMIODARONE HCL 200 MG TAB PO SCH ×2 (10:33→22:00)
[2019-09-15] MEDS: METOPROLOL TARTRATE 25 MG TAB PO SCH ×2 (10:34→22:00)
[2019-09-15 12:00] VITALS: BP 116/51
--- NOTE | 2019-09-15 15:05 | NUR ---
Opening Shift Note Assumed care of patient, patient comfortably sleeping on room air, respirations are even and unlabored. No S/S of distress/SOB or pain. TPN running at 67mls/hr. Bed at lowest locked position and call light within reach. Will continue to monitor for changes Q1hr and PRN.
[2019-09-15 17:00] VITALS: BP 116/66
--- NOTE | 2019-09-15 17:40 | NUR ---
BOWEL MOVEMENT Patient had a BM, cleansed patient and complete bed change done with help from Derrick OCONNELL.
--- NOTE | 2019-09-15 19:40 | NUR ---
Opening Shift Note Assumed care of patient, awake, AAOx2, reoriented to time and situation. No S/S of distress/SOB or pain. On 2L oxygen via nasal cannula. Patient on bedrest. Roman catheter patent and draining to gravity. BRADY drain noted, patent. TPN running at 67ml/hr. SCD's on. Bed in lowest locked position, side rails up x2, call light within reach. Instructed on POC and to call for assist PRN, will continue to monitor for changes Q1hr and PRN.
[2019-09-15] MEDS ORDERED: TPN*HIGH CONC* PER PHARMACY IV NR ×10 (20:00)
[2019-09-15 22:00] VITALS: BP 122/57
[2019-09-16 05:00] VITALS: BP 130/66
--- NOTE | 2019-09-16 05:00 | NUR ---
Patient had large bowel movement. Patient cleaned and soiled linens changed. Patient clean and dry.
--- NOTE | 2019-09-16 05:36 | NUR ---
50ml serosanguineous fluid removed from BRADY drain. Brady bulb redepressed.
[2019-09-16] MEDS: InsuLIN REG 1unit/0.01ml Soln (100units/ml) SC SCH ×4 (06:00→17:43)
[2019-09-16] MEDS: ACCU-CHEK COMFORT CURVE STRIP VI SCH ×4 (06:00→17:43)
--- NOTE | 2019-09-16 07:30 | NUR ---
Opening Shift Note Assumed care of patient, awake and alert x2. No S/S of distress/SOB or pain. Instructed on POC and to call for assist PRN, will continue to monitor for changes Q1hr and PRN.
[2019-09-16 07:44] LABS: Basophils # (auto) 0.1 10 ^3/uL (0-0.2); Eosinophils # (auto) 0 10 ^3/uL (0-0.8); Eosinophils % (auto) 0.5 % (0.0-7.0); Hemoglobin 8.8 g/dL (13.5-17.5); Lymphocytes # (auto) 0.8 10 ^3/uL (0.4-5.4); Lymphocytes % (auto) 12.9 % (10.0-50.0); Mean Corpuscular Hgb Conc. 33.7 g/dL (32.0-36.0); Mean Corpuscular Volume 91.9 fL (80.0-100.0); Monocytes # (auto) 0.3 10 ^3/uL (0-1.3); Monocytes % (auto) 5.5 % (0.0-12.0); Neutrophils % (auto) 80.1 % (37.0-80.0); Nucleated Red Blood Cells % 0.1 %; Platelet Count (auto) 385 10^3/uL (140-450); Red Blood Cells 2.83 10^6/uL (4.5-5.90); Red Cell Distribution Width 14.6 % (11.8-14.3); White Blood Cell 6.2 10^3/uL (4.4-10.8)
[2019-09-16 08:00] VITALS: BP 113/66
[2019-09-16 08:15] LABS: Albumin 2.1 g/dL (3.4-5.0); Calcium 7.8 mg/dL (8.5-10.1); Magnesium 2.3 mg/dL (1.6-2.6); Potassium 3.7 mmol/L (3.5-5.1)
[2019-09-16 08:19] LABS: BUN/Creatinine Ratio 32.1; Bilirubin, Total 0.2 mg/dL (0.2-1.0); Phosphorus 2.7 mg/dL (2.5-4.90); Total Protein 6.3 g/dL (6.4-8.2)
[2019-09-16] MEDS: cefTRIAXone 1GM/50ML D5W 50 ML IV SCH (09:56)
[2019-09-16] MEDS: PANTOPRAZOLE 40 MG/10 ML VIAL INJ IV SCH (09:56)
[2019-09-16] MEDS: SODIUM CHLOR 0.9% PF (SALINE LOCK) 10ML VIAL/SYR IV SCH ×2 (09:56→22:00)
[2019-09-16] MEDS: AMIODARONE HCL 200 MG TAB PO SCH ×2 (09:56→22:54)
[2019-09-16] MEDS: FLORASTOR (S. BOULARDII) 250 MG CAP PO SCH ×2 (09:58→22:00)
[2019-09-16] MEDS: METOPROLOL TARTRATE 25 MG TAB PO SCH ×2 (09:58→22:55)
--- NOTE | 2019-09-16 10:35 | NUR ---
Nutrition Followup Notes Wt: 106.3 kg Pt is extubated, s/p ST ana now on pureed diet with inadeuqte Po of 0% x 4 per RN doc as pt refusing. Pt also with TPN running at 67 ml/hr providing 1910 kcal, 105g protein, and 1490 NPCs. Current PN support provides 105-135% of energy needs and 140-175% of protein needs. Est energy needs 1833-4724 kcal (14-18 kcal/kg BW 100.7kg), Est protein 60-75g (0.6-0.75g/kg BW 100.7kg). Will reassess prn. LABS: BUN 45 H, CREAT 1.4 H, CA 7.8 L, ALB 2.1 L GI: Pt had 1 BM yesterday per RN doc. BS: 13 mod risk Refer to wound assessment report for full details. PES: 1) Obesity r/t caloric intake in excess of needs aeb pt BMI is 31.0kg/m2 which is obese 2) Altered nutrition related labs r/t current medical condition aeb elevated RFTs, hypoalb 3) Inadequate oral intake r/t current medical condition aeb pt with NPO diet order Comments 1) Continue PN support to meet > 75% of needs.2) Consider assistance with meals. 3) taper off PN as pt tolerates PO adequately. 4) Continue current plan of care. F/u high 2-3 days
--- NOTE | 2019-09-16 12:22 | NUR ---
EEG-ELECTROENCEPHALOGRAM COMPLETED ON 09/16/2019.
[2019-09-16 13:00] VITALS: BP 112/60
--- NOTE | 2019-09-16 14:30 | NUR ---
Found patient on floor, no visual trama noted, patient denies pain, unable to explain fall, large BM present, MD notified. VS stable, bed alarm turned on.Will continue to monitor.
[2019-09-16 16:52] VITALS: BP 104/38
[2019-09-16] MEDS: Glucerna Carbsteady SHAKE Vanilla 8oz PO SCH (17:42)
[2019-09-16] MEDS ORDERED: TPN*HIGH CONC* PER PHARMACY IV NR ×10 (20:00)
[2019-09-16] MEDS ORDERED: POTASSIUM CHL 20 Meq TABLET PO ONE (21:00)
[2019-09-16] MEDS ORDERED: POTASSIUM CHL 20MEQ/100ML 100 ML IV ONE (21:00)
[2019-09-16 22:00] VITALS: BP 127/67
[2019-09-17] MEDS: InsuLIN REG 1unit/0.01ml Soln (100units/ml) SC SCH ×4 (05:50→18:31)
[2019-09-17 06:00] VITALS: BP 131/65
[2019-09-17] MEDS: ACCU-CHEK COMFORT CURVE STRIP VI SCH ×4 (06:06→17:42)
--- NOTE | 2019-09-17 07:20 | NUR ---
End of Shift Note Endorsed care to dayshift RN. At this time patient has no s/s of distress or SOB.
[2019-09-17 09:00] VITALS: BP 134/44
[2019-09-17] MEDS: SODIUM CHLOR 0.9% PF (SALINE LOCK) 10ML VIAL/SYR IV SCH ×2 (10:00→21:16)
[2019-09-17] MEDS: FLORASTOR (S. BOULARDII) 250 MG CAP PO SCH ×2 (10:00→21:39)
[2019-09-17 10:25] LABS: Basophils # (auto) 0.1 10 ^3/uL (0-0.2); Basophils % (auto) 1.2 % (0.0-2.0); Eosinophils # (auto) 0.1 10 ^3/uL (0-0.8); Eosinophils % (auto) 0.8 % (0.0-7.0); Hematocrit 29.1 % (41.0-53.0); Hemoglobin 9.7 g/dL (13.5-17.5); Lymphocytes # (auto) 0.7 10 ^3/uL (0.4-5.4); Mean Corpuscular Hemoglobin 30.2 pg (28.0-32.0); Mean Corpuscular Hgb Conc. 33.2 g/dL (32.0-36.0); Monocytes # (auto) 0.3 10 ^3/uL (0-1.3); Monocytes % (auto) 4.5 % (0.0-12.0); Neutrophils # (auto) 5.6 10 ^3/uL (1.6-8.6); Neutrophils % (auto) 83.5 % (37.0-80.0); Platelet Count (auto) 332 10^3/uL (140-450); Red Cell Distribution Width 14.4 % (11.8-14.3); White Blood Cell 6.7 10^3/uL (4.4-10.8)
[2019-09-17 10:40] LABS: Albumin 2.5 g/dL (3.4-5.0); Calcium 8.1 mg/dL (8.5-10.1); Magnesium 2.3 mg/dL (1.6-2.6)
[2019-09-17 10:46] LABS: BUN/Creatinine Ratio 31.3; Bilirubin, Total 0.3 mg/dL (0.2-1.0); Phosphorus 2.8 mg/dL (2.5-4.90); Pre Albumin 21.4 mg/dL (20.0-40.0); Total Protein 6.9 g/dL (6.4-8.2)
[2019-09-17] MEDS: Glucerna Carbsteady SHAKE Vanilla 8oz PO SCH ×3 (12:00→18:30)
[2019-09-17] MEDS ORDERED: MEGESTROL ACET 400MG/10ML ORAL SUSP PO ONE (12:45)
[2019-09-17] MEDS: PANTOPRAZOLE 40 MG/10 ML VIAL INJ IV SCH (12:57)
[2019-09-17] MEDS: cefTRIAXone 1GM/50ML D5W 50 ML IV SCH (12:57)
--- NOTE | 2019-09-17 12:58 | NUR ---
Dr. Cruz at bedside. updated Next Of Kin , Marcela
[2019-09-17 13:00] VITALS: BP 138/60
[2019-09-17] MEDS: AMIODARONE HCL 200 MG TAB PO SCH ×2 (13:00→21:39)
[2019-09-17] MEDS: METOPROLOL TARTRATE 25 MG TAB PO SCH ×2 (13:06→21:39)
--- NOTE | 2019-09-17 13:08 | NUR ---
Patient's NOK requesting update on patient. Marcela provided password, [phone]. Update given .
--- NOTE | 2019-09-17 14:00 | NUR ---
BOWEL MOVEMENT Patient had a BM, cleansed patient and complete bed change done with help from Ofe OCONNELL.
--- NOTE | 2019-09-17 15:00 | NUR ---
20ml serosanguineous fluid removed from alfredo. Alfredo bulb redepressed. Patient tolerated well.
[2019-09-17 16:18] VITALS: BP 122/67
--- NOTE | 2019-09-17 18:57 | NUR ---
Closing Note Patient is sitting up in bed, rr even and unlabored. No s/s of sob/distress, no c/o pain. Bed at lowest locked position and call light within reach. Will endorse care to NOC RN.
--- NOTE | 2019-09-17 19:15 | NUR ---
Opening Shift Note Assumed care of patient, awake and alert. No S/S of distress/SOB or pain. Instructed on POC and to call for assist PRN, will continue to monitor for changes Q1hr and PRN. Safety precautions in place bed is in lowest position and locked, bed rails x2, bed alarm on.
[2019-09-17] MEDS ORDERED: TPN*HIGH CONC* PER PHARMACY IV NR ×10 (20:00)
[2019-09-17 21:42] VITALS: BP 135/86
[2019-09-18] MEDS: ACCU-CHEK COMFORT CURVE STRIP VI SCH ×4 (00:04→17:53)
[2019-09-18] MEDS: InsuLIN REG 1unit/0.01ml Soln (100units/ml) SC SCH ×4 (00:09→17:54)
[2019-09-18 05:00] VITALS: BP 120/66
[2019-09-18 05:36] LABS: Basophils # (auto) 0.1 10 ^3/uL (0-0.2); Basophils % (auto) 1.8 % (0.0-2.0); Eosinophils # (auto) 0.1 10 ^3/uL (0-0.8); Eosinophils % (auto) 1.3 % (0.0-7.0); Hematocrit 25.3 % (41.0-53.0); Hemoglobin 8.5 g/dL (13.5-17.5); Lymphocytes # (auto) 0.9 10 ^3/uL (0.4-5.4); Mean Corpuscular Hemoglobin 30.8 pg (28.0-32.0); Mean Corpuscular Hgb Conc. 33.4 g/dL (32.0-36.0); Mean Corpuscular Volume 92.1 fL (80.0-100.0); Monocytes # (auto) 0.4 10 ^3/uL (0-1.3); Monocytes % (auto) 8.6 % (0.0-12.0); Neutrophils # (auto) 2.8 10 ^3/uL (1.6-8.6); Neutrophils % (auto) 66.3 % (37.0-80.0); Platelet Count (auto) 286 10^3/uL (140-450); Red Blood Cells 2.75 10^6/uL (4.5-5.90); Red Cell Distribution Width 14.5 % (11.8-14.3); White Blood Cell 4.2 10^3/uL (4.4-10.8)
[2019-09-18 05:52] LABS: Albumin 2.2 g/dL (3.4-5.0); Calcium 7.5 mg/dL (8.5-10.1); Potassium 3.6 mmol/L (3.5-5.1)
[2019-09-18 05:57] LABS: BUN/Creatinine Ratio 33.1; Bilirubin, Total 0.3 mg/dL (0.2-1.0); Magnesium 2.2 mg/dL (1.6-2.6); Total Protein 6.3 g/dL (6.4-8.2)
--- NOTE | 2019-09-18 07:26 | NUR ---
End of Shift Note Endorsed care to dayshift RN. At this time patient has no s/s of distress or SOB.
[2019-09-18 09:00] VITALS: BP 114/52
[2019-09-18 09:25] LABS: Folate (Folic Acid) 9.61 ng/mL (5.38-24)
[2019-09-18] MEDS: cefTRIAXone 1GM/50ML D5W 50 ML IV SCH (10:13)
[2019-09-18] MEDS: Glucerna Carbsteady SHAKE Vanilla 8oz PO SCH ×3 (10:13→17:54)
[2019-09-18] MEDS: PANTOPRAZOLE 40 MG/10 ML VIAL INJ IV SCH (10:14)
[2019-09-18] MEDS: MEGESTROL ACET 400MG/10ML ORAL SUSP PO SCH (10:14)
[2019-09-18] MEDS: FLORASTOR (S. BOULARDII) 250 MG CAP PO SCH ×2 (10:15→23:16)
[2019-09-18] MEDS: METOPROLOL TARTRATE 25 MG TAB PO SCH ×2 (10:18→23:15)
[2019-09-18] MEDS: AMIODARONE HCL 200 MG TAB PO SCH ×2 (10:20→23:16)
[2019-09-18] MEDS: SODIUM CHLOR 0.9% PF (SALINE LOCK) 10ML VIAL/SYR IV SCH ×2 (10:25→23:15)
[2019-09-18 13:17] VITALS: BP 111/55
--- NOTE | 2019-09-18 15:13 | NUR ---
Nutrition Followup Notes Wt: 104.6 kg Pt is extubated, s/p SW evkinga now on pureed diet with inadequate PO intake of 10% x 1 per RN doc. Pt also with TPN running at 68 ml/hr providing 1910 kcal, 105g protein, and 1490 NPCs. Current PN support provides 105-135% of energy needs and 140-175% of protein needs. Est energy needs 5465-9756 kcal (14-18 kcal/kg BW 100.7kg), Est protein 60-75g (0.6-0.75g/kg BW 100.7kg). Will reassess prn. LABS: BUN 48 H, CREAT 1.45 H, CA 7.5 L, ALB 2.2 L, GLU 161 H GI: Pt had 1 BM today per RN doc. BS: 13 mod risk Refer to wound assessment report for full details. PES: 1) Obesity r/t caloric intake in excess of needs aeb pt BMI is 31.0kg/m2 which is obese 2) Altered nutrition related labs r/t current medical condition aeb elevated RFTs, hypoalb 3) Inadequate oral intake r/t current medical condition aeb pt with NPO diet order Comments 1) Continue PN support to meet > 75% of needs.2) Consider assistance with meals. 3) taper off PN as pt tolerates PO adequately. 4) Continue current plan of care. F/u high 2-3 days
[2019-09-18 17:40] VITALS: BP 135/49
[2019-09-18] MEDS ORDERED: TPN*HIGH CONC* PER PHARMACY IV NR ×11 (20:00)
[2019-09-18 22:00] VITALS: BP 149/78
[2019-09-19] MEDS: ACCU-CHEK COMFORT CURVE STRIP VI SCH ×4 (00:20→17:57)
[2019-09-19 05:00] VITALS: BP 122/44
[2019-09-19] MEDS: InsuLIN REG 1unit/0.01ml Soln (100units/ml) SC SCH ×4 (06:20→17:56)
[2019-09-19 06:57] LABS: Basophils # (auto) 0 10 ^3/uL (0-0.2); Eosinophils # (auto) 0 10 ^3/uL (0-0.8); Eosinophils % (auto) 0.5 % (0.0-7.0); Hemoglobin 8.3 g/dL (13.5-17.5); Monocytes # (auto) 0.3 10 ^3/uL (0-1.3)
[2019-09-19 06:59] LABS: Basophils % (auto) 0.8 % (0.0-2.0); Hematocrit 24.6 % (41.0-53.0); Lymphocytes # (auto) 0.9 10 ^3/uL (0.4-5.4); Lymphocytes % (auto) 19.4 % (10.0-50.0); Mean Corpuscular Hemoglobin 30.9 pg (28.0-32.0); Mean Corpuscular Hgb Conc. 33.9 g/dL (32.0-36.0); Mean Corpuscular Volume 91.1 fL (80.0-100.0); Monocytes % (auto) 6.7 % (0.0-12.0); Neutrophils # (auto) 3.5 10 ^3/uL (1.6-8.6); Neutrophils % (auto) 72.6 % (37.0-80.0); Platelet Count (auto) 282 10^3/uL (140-450); Red Blood Cells 2.69 10^6/uL (4.5-5.90); Red Cell Distribution Width 14.8 % (11.8-14.3); White Blood Cell 4.9 10^3/uL (4.4-10.8)
[2019-09-19 07:16] LABS: Albumin 2.3 g/dL (3.4-5.0); Calcium 7.8 mg/dL (8.5-10.1); Magnesium 2.2 mg/dL (1.6-2.6); Potassium 3.7 mmol/L (3.5-5.1)
[2019-09-19 07:19] LABS: BUN/Creatinine Ratio 32.6; Bilirubin, Total 0.3 mg/dL (0.2-1.0); Phosphorus 2.7 mg/dL (2.5-4.90); Total Protein 6.5 g/dL (6.4-8.2)
--- NOTE | 2019-09-19 07:30 | NUR ---
Shift Opening Note Received patient sleeping in bed comfortably and was in no distress. patient easily awakened and voiced no c/o pain/ discomfort. patient oriented to self only. Shift assessment done and charted. Plan of care, meds, treatments and safety discussed with patient with questionable understanding. Will continue to monitor patient.
[2019-09-19 09:00] VITALS: BP 129/75
[2019-09-19] MEDS: cefTRIAXone 1GM/50ML D5W 50 ML IV SCH (09:26)
[2019-09-19] MEDS: Glucerna Carbsteady SHAKE Vanilla 8oz PO SCH ×3 (09:27→17:57)
[2019-09-19] MEDS: SODIUM CHLOR 0.9% PF (SALINE LOCK) 10ML VIAL/SYR IV SCH ×2 (10:02→23:06)
[2019-09-19] MEDS: MEGESTROL ACET 400MG/10ML ORAL SUSP PO SCH (10:02)
[2019-09-19] MEDS: PANTOPRAZOLE 40 MG/10 ML VIAL INJ IV SCH (10:02)
[2019-09-19] MEDS: FLORASTOR (S. BOULARDII) 250 MG CAP PO SCH ×2 (10:03→23:04)
[2019-09-19] MEDS: METOPROLOL TARTRATE 25 MG TAB PO SCH ×2 (10:04→23:05)
[2019-09-19] MEDS: AMIODARONE HCL 200 MG TAB PO SCH ×2 (10:05→23:06)
[2019-09-19 12:57] VITALS: BP 107/56
--- NOTE | 2019-09-19 15:30 | NUR ---
Patient transferred 50 room 220B from 217A per bed in a stable condition.
[2019-09-19 17:00] VITALS: BP 119/55
[2019-09-19] MEDS ORDERED: TPN*HIGH CONC* PER PHARMACY IV NR ×11 (20:00)
[2019-09-19 22:00] VITALS: BP 121/64
[2019-09-20] MEDS: ACCU-CHEK COMFORT CURVE STRIP VI SCH ×5 (00:08→23:49)
[2019-09-20] MEDS: InsuLIN REG 1unit/0.01ml Soln (100units/ml) SC SCH ×5 (01:04→23:50)
[2019-09-20 05:00] VITALS: BP 141/65
[2019-09-20 06:33] LABS: Basophils # (auto) 0.1 10 ^3/uL (0-0.2); Basophils % (auto) 1.3 % (0.0-2.0); Eosinophils # (auto) 0.1 10 ^3/uL (0-0.8); Eosinophils % (auto) 1.2 % (0.0-7.0); Hematocrit 26.5 % (41.0-53.0); Hemoglobin 8.7 g/dL (13.5-17.5); Lymphocytes # (auto) 0.8 10 ^3/uL (0.4-5.4); Lymphocytes % (auto) 17.4 % (10.0-50.0); Mean Corpuscular Hemoglobin 30.1 pg (28.0-32.0); Mean Corpuscular Volume 91.4 fL (80.0-100.0); Monocytes # (auto) 0.3 10 ^3/uL (0-1.3); Monocytes % (auto) 6.5 % (0.0-12.0); Neutrophils # (auto) 3.5 10 ^3/uL (1.6-8.6); Neutrophils % (auto) 73.6 % (37.0-80.0); Nucleated Red Blood Cells % 0.1 %; Platelet Count (auto) 268 10^3/uL (140-450); White Blood Cell 4.7 10^3/uL (4.4-10.8)
[2019-09-20 06:52] LABS: Potassium 3.9 mmol/L (3.5-5.1)
[2019-09-20 06:59] LABS: Albumin 2.3 g/dL (3.4-5.0); BUN/Creatinine Ratio 30.9; Bilirubin, Total 0.4 mg/dL (0.2-1.0); Calcium 7.8 mg/dL (8.5-10.1); Magnesium 2.3 mg/dL (1.6-2.6); Phosphorus 3.3 mg/dL (2.5-4.90); Total Protein 6.7 g/dL (6.4-8.2)
--- NOTE | 2019-09-20 08:00 | NUR ---
Opening Shift Note Assumed care of patient, awake, alert and oriented X3, with periods of confusion. Tele# 43, Atrial Fibrillation @ 91 BPM. Double lumen PICC to right upper arm with dressing clean, dry and intact. No S/S of distress/SOB or pain. Medial abdominal incision with alanis intact, open to air. Urethral Roman catheter draining clear, yellow urine to gravity. Instructed on POC and to call for assist PRN, verbalized understanding but requires frequent reminding. Bed locked, in lowest position, call light within reach, sitter remains at bedside for patient safety, will continue to monitor for changes Q1hr and PRN.
[2019-09-20] MEDS: Glucerna Carbsteady SHAKE Vanilla 8oz PO SCH ×3 (08:37→17:23)
[2019-09-20] MEDS: cefTRIAXone 1GM/50ML D5W 50 ML IV SCH (08:40)
[2019-09-20 09:00] VITALS: BP 115/70
--- NOTE | 2019-09-20 09:05 | NUR ---
ROUNDS Dr Singleton at bedside for rounds, new orders received and followed through. TPN rate decreased to 34 ml/hr per D/C protocol.
--- NOTE | 2019-09-20 10:00 | NUR ---
ROUNDS Dr Singleton at bedside for rounds, new orders received and followed through. Patient updated on plan of care, verbalized understanding.
[2019-09-20 10:14] VITALS: BP 115/70
--- NOTE | 2019-09-20 10:47 | NUR ---
re-assessment Spoke with patients blanca Medrano who has come from [place] this morning and she will be here to sign transfer to [facility] paperwork and to bean picker patients belongings. Per Dr Singleton Marcela can come up and see patient when she signs paperwork. Celine SALINAS has been notified. Sindy MALAVE will be securing bed at [facility]. I will continue to monitor and follow up as appropriate. Addendum: 09/20/19 at 1050 by Humaira PICKERING Amended: Links added.
--- NOTE | 2019-09-20 11:00 | NUR ---
BLANCA Medrano at bedside to sign discharge and SNF paperwork. All patients personal belongings given to blanca Medrano.
--- NOTE | 2019-09-20 11:30 | NUR ---
WOUND CARE NOTE: IN TO SEE PATIENT AT THIS TIME FOR SKIN INTEGRITY MONITORING. PATIENT IS NOW ON M/S TELE FLOOR, CURRENT LAKHWINDER SCORE IS 13. SITTER IS AT BEDSIDE. PATIENT IS ABLE TO HELP WITH HIS TURNING/REPOSITIONING. HE CONTINUES TO HAV MILD MASD WITH NO SKIN EROSION TO INTRAGLUTEAL FOLD/SCROTUM. PATIENT CONTINUES TO HAVE MULTIPLE EPISODES WITH LOOSE STOOL. SKIN REMAINS INTACT, LIGHT RED. APPLIED ZGUARD TO REDDENED SKIN. MIDLINE ABDOMINAL INCISION CONTINUES TO BE WELL APPROXIMATED, WITH GOOD EPITHELIAL RIDGE NOTED. NO DRAINAGE NOTED. THERE IS FADING BRUISING NOTED ALONG INCISION LINE. LEFT OPEN TO AIR. UPPER LIP CONTINUES TO DISPLAY SCABBED ABRASION. WOUND IS HEALING WELL, WITH NO OPEN OR DRAINING AREAS NOTED. BROWN SCAB NOTED TO WOUND BED, PERIWOUND IS PINK. LEFT OPEN TO AIR. ALL SKIN INTEGRITY ISSUES PHOTOGRAPHED AT THIS TIME. ADVISED PATIENT FAMILY AT BEDSIDE OF SKIN/WOUND STATUS. RECOMMEND: CONTINUATION WITH ALL WOUND CARE ORDERS PREVIOUSLY PRESCRIBED BY MD. WOUND CARE TEAM WILL CONTINUE TO MONITOR. Addendum: 09/20/19 at 1542 by Yuki Becerra RN Amended: Links added.
--- NOTE | 2019-09-20 11:59 | NUR ---
D/C Planning Faxed updated clinical information to [facility]. Per Yudelka with [facility] patient has been accepted to [facility] and a bed has been requested. Per Yudelka she will contact me with accepting bed and following doctor.
[2019-09-20] MEDS: AMIODARONE HCL 200 MG TAB PO SCH ×2 (12:03→22:22)
[2019-09-20] MEDS: PANTOPRAZOLE 40 MG/10 ML VIAL INJ IV SCH (12:03)
[2019-09-20] MEDS: SODIUM CHLOR 0.9% PF (SALINE LOCK) 10ML VIAL/SYR IV SCH ×2 (12:03→22:23)
[2019-09-20] MEDS: FLORASTOR (S. BOULARDII) 250 MG CAP PO SCH ×2 (12:03→22:00)
[2019-09-20] MEDS: MEGESTROL ACET 400MG/10ML ORAL SUSP PO SCH (12:04)
[2019-09-20] MEDS: METOPROLOL TARTRATE 25 MG TAB PO SCH ×2 (12:04→22:22)
--- NOTE | 2019-09-20 12:24 | NUR ---
Nutrition Followup Notes Wt: 99.4 kg Pt is extubated, s/p SW ana now on pureed diet with inadequate PO intake of 14% over the last 2 days per RN doc. Pt also with TPN reduced to 34 ml/hr providing 955 kcal, 38g protein, and 803 NPCs. Current PN support is inadequate as it meets 53-68% of est energy needs and 51-63% of est protein needs. Pt is waiting for D/C pending bed availability at a SNF. Will continue to monitor PO status, skin status, pertinent labs and weight trends. Will f/u in 2-3 days. Est energy needs 3633-1447 kcal (14-18 kcal/kg BW 100.7kg), Est protein 60-75g (0.6-0.75g/kg BW 100.7kg). Will reassess prn. LABS: BUN 47 H, CREAT 1.52 H, ALB 2.3 L, GLU 138 H GI: Pt had 1 BM on 09/17 per RN doc. BS: 13 mod risk Refer to wound assessment report for full details. PES: 1) Obesity r/t caloric intake in excess of needs aeb pt BMI is 31.0kg/m2 which is obese 2) Altered nutrition related labs r/t current medical condition aeb elevated RFTs, hypoalb 3) Inadequate oral intake r/t current medical condition aeb pt with NPO diet order Comments 1) Continue PN support to meet > 75% of needs.2) Consider assistance with meals. 3) taper off PN as pt tolerates PO adequately. 4) Continue current plan of care. F/u high 2-3 days
[2019-09-20 13:00] VITALS: BP 122/66
--- NOTE | 2019-09-20 16:27 | NUR ---
D/C Planning Placed called to Yudelka with [facility] they do not have any beds available for today and will request for a bed first thing in the morning. Placed follow up called to patient blnaca Medrano advising her [facility] has no beds today and they will request a bed tomorrow morning. Informed BRAD Berger.
[2019-09-20 17:00] VITALS: BP 112/65
--- NOTE | 2019-09-20 19:14 | NUR ---
Care endorsed to BRAD Segundo, night nurse.
--- NOTE | 2019-09-20 19:30 | NUR ---
Opening Shift Note Assumed care of patient, awake and alert. No S/S of distress/SOB or pain noted. Bed is in lowest locked position with bed rails up x2. Sitter is at the bedside. Instructed on POC and to call for assist PRN.
[2019-09-20 22:00] VITALS: BP 115/62
[2019-09-21] MEDS: ACCU-CHEK COMFORT CURVE STRIP VI SCH ×3 (05:54→17:05)
[2019-09-21] MEDS: InsuLIN REG 1unit/0.01ml Soln (100units/ml) SC SCH ×4 (05:54→23:10)
--- NOTE | 2019-09-21 05:57 | NUR ---
Temperature: Temperature is 99.8. Provided patient with one sheet and cool towel to the top of head and instructed to leave it on. Patient verbalized understanding. Temperature of the room is cooled down.
[2019-09-21 06:00] VITALS: BP 132/63
[2019-09-21] MEDS: Glucerna Carbsteady SHAKE Vanilla 8oz PO SCH ×3 (07:32→17:05)
--- NOTE | 2019-09-21 08:00 | NUR ---
Opening Shift Note Assumed care of patient, awake, alert and oriented X3. No S/S of distress/SOB or pain. Tele# 43, atrial fibrillation @ 95 bpm. Right upper arm double lumen PICC with dressing clean, dry and intact. Medial abdominal incision with alanis clean, dry and intact, open to air. Left lower abdominal scab intact, open to air. Urethral Roman catheter draining purulent, yellow drainage to gravity. Instructed on POC and to call for assist PRN, verbalized understanding but requires frequent reminding. Bed locked, in lowest position, call light within reach, sitter remains at bedside for patient safety, will continue to monitor for changes Q1hr and PRN.
[2019-09-21 09:00] VITALS: BP 149/75
[2019-09-21] MEDS: ACETAMINOPHEN 650 mg PER 20 mL UD PO PRN ×2 (09:08→17:42)
[2019-09-21] MEDS: cefTRIAXone 1GM/50ML D5W 50 ML IV SCH (09:08)
[2019-09-21] MEDS: PANTOPRAZOLE 40 MG/10 ML VIAL INJ IV SCH (09:49)
[2019-09-21] MEDS: SODIUM CHLOR 0.9% PF (SALINE LOCK) 10ML VIAL/SYR IV SCH ×2 (09:49→22:14)
[2019-09-21] MEDS: AMIODARONE HCL 200 MG TAB PO SCH ×2 (09:50→22:15)
[2019-09-21] MEDS: FLORASTOR (S. BOULARDII) 250 MG CAP PO SCH ×2 (09:50→22:15)
[2019-09-21] MEDS: MEGESTROL ACET 400MG/10ML ORAL SUSP PO SCH (09:51)
[2019-09-21] MEDS: METOPROLOL TARTRATE 25 MG TAB PO SCH ×2 (09:51→22:15)
[2019-09-21 13:00] VITALS: BP 134/62
--- NOTE | 2019-09-21 15:05 | NUR ---
D/C Planning Placed call to Yudelka debbi Soler this morning regarding bed for patient, left a message. Placed another call to yudelkaher debbi Soler at 13:00 regarding bed. Per Yudelkaher debbi Soler they do not have bed available at this time and will contact me with any updates.
--- NOTE | 2019-09-21 18:51 | NUR ---
ELECTRIC MOTOR ASSEMBLER AND TESTER Call received from [employer]le [employer]. Informed patient has a bed at [facility] but unable to arrange transportation with [facility] due to bed assignment being arranged after 5 p.m. Per Danielle, patient to be discharged tomorrow morning. Will endorse to night nurse.
--- NOTE | 2019-09-21 19:10 | NUR ---
Care endorsed to BRAD Murray, night nurse.
--- NOTE | 2019-09-21 20:00 | NUR ---
assumed care, pt. awake, oriented to self, sitter at bedside, with mid-incision with alanis open to air, not in distress.
[2019-09-21 22:00] VITALS: BP 124/55
[2019-09-22 05:00] VITALS: BP 130/63
[2019-09-22] MEDS: InsuLIN REG 1unit/0.01ml Soln (100units/ml) SC SCH ×2 (05:44→12:00)
[2019-09-22 06:19] LABS: Basophils # (auto) 0 10 ^3/uL (0-0.2); Eosinophils # (auto) 0 10 ^3/uL (0-0.8); Hematocrit 24.3 % (41.0-53.0); Lymphocytes # (auto) 0.8 10 ^3/uL (0.4-5.4); Monocytes # (auto) 0.3 10 ^3/uL (0-1.3); White Blood Cell 3.9 10^3/uL (4.4-10.8)
[2019-09-22 06:22] LABS: Basophils % (auto) 0.9 % (0.0-2.0); Eosinophils % (auto) 0.6 % (0.0-7.0); Lymphocytes % (auto) 21.3 % (10.0-50.0); Mean Corpuscular Hemoglobin 30.1 pg (28.0-32.0); Mean Corpuscular Hgb Conc. 33.1 g/dL (32.0-36.0); Mean Corpuscular Volume 90.9 fL (80.0-100.0); Neutrophils # (auto) 2.7 10 ^3/uL (1.6-8.6); Neutrophils % (auto) 70.2 % (37.0-80.0); Platelet Count (auto) 193 10^3/uL (140-450); Red Blood Cells 2.67 10^6/uL (4.5-5.90); Red Cell Distribution Width 14.9 % (11.8-14.3)
[2019-09-22 06:37] LABS: BUN/Creatinine Ratio 24.4; Calcium 7.8 mg/dL (8.5-10.1); Potassium 3.6 mmol/L (3.5-5.1)
--- NOTE | 2019-09-22 07:45 | NUR ---
Opening Note Received report from automatic fabric cutter RN. Patient is awake, resting in bed. No signs or symptoms of distress noted at this time. Patient is on room air, respirations even and unlabored. Patient denies pain. Reviewed plan of care. Bed in low and locked position, call light within reach. Will continue to monitor Q1 hour and PRN. Sitter at bedside for safety.
[2019-09-22] MEDS: cefTRIAXone 1GM/50ML D5W 50 ML IV SCH (08:04)
[2019-09-22] MEDS: Glucerna Carbsteady SHAKE Vanilla 8oz PO SCH ×2 (08:05→12:00)
[2019-09-22 09:00] VITALS: BP 130/80
--- NOTE | 2019-09-22 09:11 | NUR ---
D/C Planning Placed follow up called to Yudelka with [facility] this morning at 8:15am regarding transfer. Per Yudelka with [facility] patient has been accepted to [facility] to room 108-tele accepting Dr. Chucky Mejia ). Faxed transportation form request to [facility] requesting for roller picker to be at 10 am via gurney and oxygen. Placed follow up called to [facility], spoke to Malissa. Per Malissa the earliest [facility] transport can roller picker patient is at 14:00 via gurney and oxygen. BRAD Weiss was informed.
[2019-09-22] MEDS: SODIUM CHLOR 0.9% PF (SALINE LOCK) 10ML VIAL/SYR IV SCH (11:06)
[2019-09-22] MEDS: MEGESTROL ACET 400MG/10ML ORAL SUSP PO SCH (11:07)
[2019-09-22] MEDS: PANTOPRAZOLE 40 MG/10 ML VIAL INJ IV SCH (11:07)
[2019-09-22] MEDS: FLORASTOR (S. BOULARDII) 250 MG CAP PO SCH (11:08)
[2019-09-22] MEDS: METOPROLOL TARTRATE 25 MG TAB PO SCH (11:10)
[2019-09-22] MEDS: AMIODARONE HCL 200 MG TAB PO SCH (11:10)
--- NOTE | 2019-09-22 13:50 | NUR ---
Spoke to Dr. Villaseñor Clarified orders to remove PICC line and transfer patient with Roman catheter. Will implement new orders. Will continue to monitor Q1 hour and PRN.
--- NOTE | 2019-09-22 14:10 | NUR ---
Discharge instructions given as ordered. All questions and concerns addressed. Patient and family verbalized understanding. PICC line removed with catheter intact, pressure dressing applied. Medication reconciliation form completed and copy given to patient. Telemetry unit returned to ICU. Attempted to give report to BRAD Soler states she is unable to take repot at this time. Awaiting call back. Patient transported by [facility] transportation with all personal belongings. No distress noted at time of departure.
--- NOTE | 2019-09-22 14:35 | NUR ---
Report called to [place] Report given to Lisa toscano [place]. All questions and concerns addressed.
== END 2019-09-22 14:00 | DRG 853 ==
LOC: ER 12:02 → TELE 12:03 → TELE-CENTR 21:33 → ICU WEST 09-01 20:03 → TELE-CENTR 09-12 16:39
PROVIDERS: ADMIT Hospitalist; ATTEND Internal Medicine
PROC: 0DH67UZ Insertion of Feeding Device into Stomach, Via Natural or Artificial Opening (ICD-10-PCS; 2019-08-26)
PROC: 0DBN8ZX Excision of Sigmoid Colon, Via Natural or Artificial Opening Endoscopic, Diagnostic (ICD-10-PCS; principal; 2019-08-28 14:59)
PROC: 4A02XM4 Measurement of Cardiac Total Activity, External Approach (ICD-10-PCS; 2019-08-29)
PROC: 0DTL0ZZ Resection of Transverse Colon, Open Approach (ICD-10-PCS; 2019-09-01)
PROC: 0DJD0ZZ Inspection of Lower Intestinal Tract, Open Approach (ICD-10-PCS; 2019-09-01)
PROC: 5A1955Z Respiratory Ventilation, Greater than 96 Consecutive Hours (ICD-10-PCS; 2019-09-01)
PROC: 0BH17EZ Insertion of Endotracheal Airway into Trachea, Via Natural or Artificial Opening (ICD-10-PCS; 2019-09-01)
PROC: 3E0336Z Introduction of Nutritional Substance into Peripheral Vein, Percutaneous Approach (ICD-10-PCS; 2019-09-02)
DX: A41.9 Sepsis, unspecified organism (principal); N17.0 Acute kidney failure with tubular necrosis; G92 Toxic encephalopathy; J96.01 Acute respiratory failure with hypoxia; C18.4 Malignant neoplasm of transverse colon; D68.69 Other thrombophilia; K56.49 Other impaction of intestine; J98.11 Atelectasis; I48.92 Unspecified atrial flutter; N39.0 Urinary tract infection, site not specified; G93.1 Anoxic brain damage, not elsewhere classified; K56.600 Partial intestinal obstruction, unspecified as to cause; E44.0 Moderate protein-calorie malnutrition; E86.0 Dehydration; D53.9 Nutritional anemia, unspecified; D50.9 Iron deficiency anemia, unspecified; D63.8 Anemia in other chronic diseases classified elsewhere; E83.52 Hypercalcemia; K80.20 Calculus of gallbladder without cholecystitis without obstruction; I48.91 Unspecified atrial fibrillation; E87.6 Hypokalemia; E11.22 Type 2 diabetes mellitus with diabetic chronic kidney disease; E11.65 Type 2 diabetes mellitus with hyperglycemia; E78.5 Hyperlipidemia, unspecified; F17.200 Nicotine dependence, unspecified, uncomplicated; I12.9 Hypertensive chronic kidney disease with stage 1 through stage 4 chronic kidney disease, or unspecified chronic kidney disease; I49.3 Ventricular premature depolarization; I70.0 Atherosclerosis of aorta; K57.30 Diverticulosis of large intestine without perforation or abscess without bleeding; K59.04 Chronic idiopathic constipation; N18.3 Chronic kidney disease, stage 3 (moderate); K21.9 Gastro-esophageal reflux disease without esophagitis; M10.9 Gout, unspecified; N28.1 Cyst of kidney, acquired; Z85.038 Personal history of other malignant neoplasm of large intestine; Z93.3 Colostomy status; Z80.1 Family history of malignant neoplasm of trachea, bronchus and lung; Z79.899 Other long term (current) drug therapy; Z20.828 Contact with and (suspected) exposure to other viral communicable diseases
CPT/HCPCS: 36415; 36569; 36600; 43239; 70450; 71045; 74176; 76705; 78452; 80048; 80053; 80307; 81001; 82040; 82378; 82607; 82746; 82805; 82962; 83036; 83690; 83735; 83880; 83970; 84100; 84443; 84478; 84484; 85025; 85610; 85730; 86850; 86900; 86901; 87040; 87070; 87081; 87086; 87205; 92610; 93005; 93017; 93306; 94002; 94003; 95819; 96365; 96366; 96375; 97110; 97530; C9113; G0378; J0153; J0330; J0610; J0690; J0696; J1815; J2001; J2250; J2405; J2543; J2704; J3480; J3490; J7060; J7131; P9047